=== PATIENT | female | born 1965 | race Caucasian/White ===

== ENCOUNTER 2021-10-19 13:30 | Outpatient (RCR) | payer BC, SELFPAY ==
--- OUTSIDE RECORDS SUMMARY | 2021-09-14 10:09 | XMS_ITS | Continuity of Care Document ---
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 noted July 23, Yes Active in previous 2021 records received Sulfa drugs Allergy Moderate swelling July 23, Yes Active 2021 Yip Allergy Moderate lip swelling July 23, Yes Active 2021 Social History Smoking Status Status Start Date End Date Date of Observat ion Ex-smoker (finding) October 10, 021 1:48pm Observation Status Observation Response Date of Response Tobacco abuse November 30, 2014 3:22pm Alcohol use November 30, 2014 3:24pm Additional Data Assigned Sex Female Problems Active Problems Medical Problem Onset Date Status Hyperlipidemia Active Elbow pain, chronic Active Small cell lung cancer May 06, 2017 Active History of tobacco use Resolved Hypertension Active 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 D o not take with other sedating medications. Mg TAB 2021 8:28am Diazepam Active 5 MG PO Once 22 June Take 30 mi nutes prior to MRI. Do not take with other , sedating meds. 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 2021 8:32am Diclofenac Active 1 ROSE TOP 4 Times Per March Apply to affected area of back pain. Do not use if taking Sodium Day as , ibuprofen or other NSAID. (Topical) needed 2019 1:24pm Epinephrine Active 0.3 MG IM Once 22 December (Epipen , 2-Rusty) 0.3 2020 Mg INJ 1:11pm Escitalopram Active 5 MG PO Daily June Oxalate 2021 6:46pm Ibuprofen Active 400-6 MG PO Q6h Prn 30 (Advil) 200 00 Mg CAP Lidocaine-Pr Active 1 ROSE TOP As Needed 20 November ilocaine 2019 1:39pm Magnesium Active 400 MG PO Daily 100 Oxide Metoprolol Active 25 MG PO Daily 20 August Succinate , (Metoprolol 2021 Succinate 3:32pm Er) 25 Mg TABCR Acetaminophe Disconti 1 - 2 TAB PO Q4h Prn October n/Codeine nued , ry Phosphate 2004 10, (Acetaminoph 10:21pm 2008 en/Codeine#3 8:17pm ) 30 Mg/300 Mg TAB Acetaminophe Disconti 1-2 TAB PO Three Times Oc alexandra n/Hydrocodon nued A Day as er , r e Bitart needed 2013 12, (Hydrocodone 3:06pm 2013 -Acetaminoph 1:56pm en) 5 Mg/325 Mg TAB Albuterol Disconti 2-4 PUFF INH Every 4 1 May (Ventolin nued Hours as 13, , Hfa) 90 Mcg needed 2017 2018 DOSE 8:59am 3:08pm Albuterol Disconti 2-4 PUFF INH Every 4 1 May (Ventolin nued Hours as y 12th, 13, Hfa) 90 Mcg needed 2017 2017 DOSE 2:45pm 8:59am Albuterol Disconti 2-4 PUFF INH Every 4 1 Decembe (Ventolin nued Hours as r 22, ry Hfa) 90 Mcg needed 2017 02, DOSE 4:16pm 2017 2:45pm Albuterol Disconti 1 - 2 PUFF PO Qid Prn Octoberua (Ventolin nued 23, ry Hfa) 90 Mcg 2004 8th, DOSE 10:21pm 2008 8:17pm Albuterol Disconti 2 PUFF INH Every 4 1 Maruar Sulfate nued Hours as y (Proair Hfa) needed , 90 Mcg/Puff 2021 INH 11:26a m Albuterol Disconti 2.5 MG NEB Every 4 30 Decembe May Sulfate nued Hours as r 22, , (Albuterol needed 2016 2017 Neb) 2.5 4:55pm 9:15am Mg/3 Ml NEB Albuterol/Ip Disconti 1 NEB NEB Four Times 120 Decembe Mar ch ratropium nued Daily r , , (Duoneb) 3 2016 2017 Mg/0.5 Mg 4:30pm 9:15am NEB Albuterol/Ip Disconti 1 NEB NEB Once 1 Decembe Decemb ratropium nued r 22, er (Duoneb) 3 2016, Mg/0.5 Mg 4:12pm 2016 NEB 4:19pm Amitriptylin Disconti 25 MG PO Qhs 20 Februar Octobe e Hcl nued y , r 2009 02, 10:31pm 2008 6:28pm Amlodipine Disconti 5 MG PO Daily July Besylate nued , vijaya 2013 11, 12:41pm 2013 2:15pm Amlodipine Disconti 10 MG PO Daily August Besylate nued , vijaya 2013 11, 2:41pm 2013 2:15pm Amlodipine Disconti 5 MG PO Daily June Besylate nued , 2013 10:12am 12:41p m Amlodipine Disconti 5 MG PO Daily March Besylate nued , 2013 9:19am 10:12a m Amlodipine Disconti 5 MG PO Daily September Besylate nued , y 2012, 10:32am 2013 9:19am Amlodipine Disconti 5 MG PO Daily June Besylate nued 2012 9:12am 10:32a m Amlodipine Disconti 5 MG PO Daily June Besylate nued 2012 9:12am Amoxicillin Disconti 1 TABLET PO Twice Daily September & Pot nued For 10 Days , Clavulanate 2014 2014 (Augmentin) 10:28am 1:05pm 875 Mg/125 Mg TAB Amoxicillin/ Disconti 1 TAB PO Twice Daily h Clavulanate nued For 10 Days 2017 (Amoxicillin 9:15am & Pot Clavulanate) 875 Mg/125 Mg TAB Aspirin Disconti 81 MG PO Daily Juneed 2017 3:17pm Atorvastatin Disconti 80 MG PO Bedtime June Calcium nued , 2021 10:43am 3:34pm Atorvastatin Disconti 80 MG PO Bedtime March Calcium nued , 2021 10:00am 10:43a m Atorvastatin Disconti 80 MG PO Bedtime Maruar Calcium nued r , y 2020, 11:13am 2021 10:00a m Atorvastatin Disconti 80 MG PO Bedtime December Decemb Calcium nued , er 2019, 1:11pm 2020 11:13a m Atorvastatin Disconti 40 MG PO Bedtime December Octobe Calcium nued , r 2019, 10:36am 2019 1:11pm Atorvastatin Disconti 40 MG PO Bedtime July Octobe Calcium nued , r 2019 10:48am 10:36a m Atorvastatin Disconti 40 MG PO Bedtime June Calcium nued , 2018 1:43pm 10:48a m Atorvastatin Disconti 40 MG PO Bedtime July Calcium nued , 2017 10:04am 1:43pm Atorvastatin Disconti 40 MG PO Bedtime 90 July Calcium nued y 2017 2:45pm 10:04a m Atorvastatin Disconti 40 MG PO Bedtime 90 Novem Februa Calcium nued r , ry 2017 02, 12:35pm 2017 2:45pm Atorvastatin Disconti 40 MG PO Bedtime 90 Novem Novemb Calcium nued r 15th, er 2015 10, 2:34pm 2016 12:35p m Atorvastatin Disconti 40 MG PO Bedtime December Pt needs apt Calcium nued 4th, er for physical 2015, prior to 4:26pm 2015 further 2:34pm refills Atorvastatin Disconti 40 MG PO Bedtime 20 November Octobe Calcium nued 30th, r , 2015 2015 3:52pm 4:26pm Atorvastatin Disconti 80 MG PO Bedtime October Pt needs to be seen for physical with fasting lab work Calcium nued , , prior to nex t refill. 2015 2015 4:44pm 3:52pm Atorvastatin Disconti 80 MG PO Bedtime March Calcium nued , , 2015 2015 2:41pm 4:44pm Atorvastatin Disconti 10 MG PO Bedtime March Pt needs to be seen prior to next refill request. Pt should Calcium nued , y come in fast ing to have lab work updated as well 2015, 2:58pm 2015 2:41pm Atorvastatin Disconti 10 MG PO Bedtime 30 Decembmaruar Calcium nued r 15th, y 2014, 4:26pm 2015 2:58pm Atorvastatin Disconti 10 MG PO Bedtime 30 Novem Decemb Please schedule a follow up appointment for further Calcium nued r 13th, er refills. 2014, 10:01am 2014 4:26pm Atorvastatin Disconti 10 MG PO Bedtime October Calcium nued 18th, er 2014, 9:10am 2014 10:01a m Azithromycin Disconti 0 PO Daily 6 Novembe Decemb T BHASKAR 2 TABLETS TOGETHER TODAY, THEN 1 TABLET ONCE DAILY FOR 4 MORE (Zithromax) nued r 2nd, er DAYS 250 Mg TAB 2016, 4:54pm 2016 3:48pm Azithromycin Disconti 250-5 MG PO Daily September 500 mg x 1 day nued , , then 250 mg 2014 2014 daily x 4 days 2:07pm 1:28pm Azithromycin Disconti 250-5 MG PO Daily June 500 mg x 1 day nued , then 250 mg 2013 2014 daily x 4 days 9:11am 12:41p m Azithromycin Disconti 1 PACK PO As Dir On October a TAKE 2 TABLETS TOGETHER ON DAY 1, THEN 1 TABLET BY MOUTH ONCE DAILY FOR 4 MORE (Zithromax) nued Pack , 250 Mg TAB 2005 8th, 10:21pm 2008 8:17pm Benzonatate Disconti 100 MG PO Three Times May b (Tessalon nued A Day as , er Perles) 100 needed 2017, Mg CAP 10:31am 2017 3:12pm Cannabinoids Disconti 15 MG PO Daily Marchuar (Full nued , y Spectrum 2022 02, Soft Gels) 1:09pm 2021 15 Mg CAP 3:00pm Cephalexin Disconti 500 MG PO Three Times be (Keflex) 500 nued A Day er r Mg CAP , 2013 5:40pm 1:56pm Chlorthalido Disconti 25 MG PO Daily September ne nued , 2014 1:42pm 1:44pm Chlorthalido Disconti 12.5 MG PO Daily September ne nued , 2014 10:28am 1:42pm Ciprofloxaci Disconti 1 TABLET PO Twice Daily December ecemb n Hcl nued For 7 Days , er 2014, 1:40pm 2014 3:45pm Cyclobenzapr Disconti 5-10 MG PO Bedtime as Dec obe ine Hcl nued needed er , r 2013 12, 3:06pm 2013 1:56pm Diphtheria/P Disconti 0.5 ML IM Once September ertussis/Tet nued , , anus Vacc 2014 2014 (Boostrix) 1 1:42pm 2:03pm Ea SUSP Doxycycline Disconti 100 MG PO Twice Daily Apr rom Hyclate nued For 10 Days r 2016, 4:32pm 2017 2:09pm Dronabinol Disconti 5 MG OR Twice A Day 60 March nued , , 2021 2021 3:01pm 10:31a m Epinephrine Disconti 0.3 MG IM Once September (Epipen nued , r 2-Rusty) 0.3 2014, Mg INJ 1:43pm 2019 1:11pm Escitalopram Disconti 10 MG PO Daily 30 June Of fice visit Oxalate nued y , , needed bef ore (Lexapro) 2021 additio nal Mg TAB 10:46am 6:46pm refills Escitalopram Disconti 2.5 MG PO Daily Oxalate nued ry (Lexapro) 01 05, Mg TAB 2021 10:46a m Escitalopram Disconti 10 MG PO Daily October Oxalate nued , vijaya 2020, 7:17am 2020 3:06pm Escitalopram Disconti 10 MG PO Daily September Oxalate nued , 2020 11:40am 7:17am Escitalopram Disconti 10 MG PO Daily August Oxalate nued , 2020 10:07am 11:40a m Escitalopram Disconti 10 MG PO Daily July Oxalate nued , , 2020 2020 9:11am 10:07a m Escitalopram Disconti 10 MG PO Daily May Oxalate nued , 2020 11:04am 9:11am Escitalopram Disconti 10 MG PO Daily May Oxalate nued r , 2019 4:55pm 11:04a m Escitalopram Disconti 10 MG PO Daily Decemberb Oxalate nued , er 2019, 1:11pm 2019 4:55pm Fluconazole Disconti 150 MG PO Once September Use after (Diflucan) nued , , finishing oral 150 Mg TAB 2014 2014 antibioti c. 2:07pm 1:28pm Fluticasone Disconti 2 SPRAY EACH Daily ua Propionate nued NOSTR r 15, ry (Fluticasone 2015, Propionate 2:34pm 2017 (Nasal)) 50 1:32pm Mcg/1 [place] INH Fluticasone Disconti 2 SPRAY EACH Daily Septemberb Propionate nued NOSTR 17th, er (Fluticasone 2014, Propionate 10:28am 2015 (Nasal)) 50 2:34pm Mcg/1 [place] INH Fluticasone Disconti 1 PUFF INH Twice A Day 1 Mar ch Propionate nued y , , Hfa (Flovent 2018 2018 Hfa) 110 2:45pm 9:15am Mcg/Act AER Fluticasone Disconti 2 SPRAY EACH Daily 1 June Rose ointment Propionate nued NOSTR y , , needed before (Nasal) 2017 2018 further 1:32pm 12:59p refills m Furosemide Disconti 20 MG PO Every 90 Decembmay nued Morning r 11, , 2016 2017 4:19pm 11:34a m Furosemide Disconti 20 MG PO Every 90 Novembe Dece nued Morning r 15th, er 2015 11, 2:34pm 2016 4:19pm Furosemide Disconti 20 MG PO Every 30 Novem Novemb Pt needs apt nued Morning r 10th, er for physic al 2015, prior to 9:43am 2015 further 2:34pm refills Furosemide Disconti 20 MG PO Every December Pt needs apt nued Morning 4th, er for physical 2015 12, prior to 4:26pm 2015 further 9:43am refills Furosemide Disconti 20 MG PO Every 20 November Oct nu Morning , r , 2015 2015 3:52pm 4:26pm Furosemide Disconti 20 MG PO Every October nued Morning , , 2015 2015 3:45pm 3:52pm Furosemide Disconti 20 MG PO Every May nued Morning , 2015 10:25am 3:45pm Furosemide Disconti 20 MG PO Every March nued Morning , 2015 2:41pm 10:25a m Furosemide Disconti 20 MG PO Every March Pt needs to be seen prior to next refill request. Pt should nued Morning , come in fast ing as well to lab work updated. 2015, 2:58pm 2015 2:41pm Furosemide Disconti 20 MG PO Every 30 Decembe Maruar nued Morning r 15th, y 2014, 4:26pm 2015 2:58pm Guaifenesin/ Disconti 5-10 ML PO Every 6 May Codeine nued Hours as , Phosphate needed 2017 2017 (Guaifenesin 8:59am 11:07a -Codeine) m 100 Mg/10 Mg/5 Ml SOLN Guaifenesin/ Disconti 5-10 ML PO Every 6 120 May Codeine nued Hours as , Phosphate needed 2017 (Guaifenesin 8:59am -Codeine) 100 Mg/10 Mg/5 Ml SOLN Guaifenesin/ Disconti 5-10 ML PO Every 6 120 Decembe Februa Codeine nued Hours r , ry Phosphate 2017 , (Guaifenesin 4:35pm 2017 -Codeine) 2:09pm 100 Mg/10 Mg/5 Ml SOLN Hydrochlorot Disconti 50 MG PO Daily 30 Decembe September hiazide nued r , 2013 12:46pm 9:55am Hydrochlorot Disconti 50 MG PO Daily 90 Decembseptember hiazide nued r , 2013 5:34pm 9:55am Hydrochlorot Disconti 50 MG PO Daily 30 Novembe Decemb hiazide nued r 11, er 2013 9, 7:42am 2013 12:46p m Hydrochlorot Disconti 50 MG PO Daily Decemberb hiazide nued 10th, er 2014 01, 2:28pm 2013 7:42am Hydrochlorot Disconti 50 MG PO Daily 20 January Octobe hiazide nued 10th, r 2013 12, 2:30pm 2013 2:30pm Ibuprofen Disconti 200 MG PO As Needed August (Advil) 200 nued as needed 4th, Mg CAP 2018 3:08pm Ibuprofen Disconti 200-6 MG PO Q6h Prn 21 July (Advil) 200 nued 00 29, Mg CAP 2018 12:59p m Ibuprofen Disconti 800 MG PO Three Times 30 Novembe Novem b nued A Day as r 15, er needed 2015 04, 2:35pm 2016 4:29pm Ibuprofen Disconti 800 MG PO Three Times 30 Novemb nued A Day as er needed 2015 2:35pm Ibuprofen Disconti 800 MG PO Three Times 30 Decembe Novem b 3 times a day nued A Day r 15, er with meals x 2014, 10 days 4:28pm 2015 2:11pm Ibuprofen Disconti 800 MG PO Three Times 30 Septemb Decem b 3 times a day nued A Day er 9th, er with meals x 2014 15, 10 days 3:13pm 2014 4:28pm Ibuprofen Disconti As Needed June nued 2012 8:55am Ibuprofen Disconti October nued 2004 7:26pm Indomethacin Disconti 50 MG PO Three Times 30 Februar Oc alexandra (Indocin) 50 nued A Day y 8th, r Mg CAP 2009 02, 10:31pm 2008 6:28pm Influenza Disconti 0.5 ML IM Once 1 Novem Novemb Virus nued r 2nd, er Vaccine 2016 04, Split 5:00pm 2016 (Fluzone 5:06pm Quadrivalent 2016 0.5 Ml) 1 Inj INJ Influenza Disconti 0.5 ML IM Once 1 Novem Novemb Virus nued r 15, er Vaccine 2015, Split 2:52pm 2015 (Fluzone 3:01pm Quadrivalent (3 Yrs And Older)2015- 7) 1 Inj INJ Influenza Disconti 0.5 ML IM Once 1 Decembe Decemb Virus nued r 15, er Vaccine 2014, Split 3:48pm 2014 (Fluzone 4:07pm Quadrivalent (3 Yrs And Older)2014- 6) 1 Inj INJ Ketorolac Disconti 30 MG IM Once 1 Novem Tromethamine nued er 9, vijaya 2013 9, 3:15pm 2013 3:18pm Lidocaine-Pr Disconti 1 ROSE TOP As Needed March st ilocaine nued , , 2019 2019 4:47pm 1:39pm Lidocaine-Pr Disconti 1 ROSE TOP As Needed Julyua ilocaine nued , ry 2017, 3:17pm 2018 2:04pm Lisinopril Disconti 20 MG PO Daily 30 Decemb nued r 11, er 2013 9, 7:43am 2013 3:13pm Lisinopril Disconti 20 MG PO Daily Decemberb nued 10th, er 2013 11, 2:29pm 2013 7:43am Lorazepam Disconti 0.5-1 MG PO Every 4 March Decemb [place] N nued Hours as 7th, er Nausea/vomi tin needed for 2019 16, g Nausea/Vomi 3:32pm 2019 ting 12:06p m Lorazepam Disconti 0.5 MG PO Twice A Day May Novemb (Ativan) 0.5 nued 6th, er Mg TAB 2017, 10:31am 2017 3:12pm Lorazepam Disconti 1 MG PO Tid Prn 14 uar Octobe nued y 8th, r 2009 02, 10:31pm 2008 6:28pm Losartan Disconti 50 MG PO Daily Decobe Potassium nued er r 2013 4:47pm 2:30pm Losartan Disconti 50 MG PO Daily Octoberem Potassium nued , 2013, 7:50am 2013 4:47pm Losartan Disconti 50 MG PO Daily September Potassium nued , 2013 9:17am 7:50am Magic Disconti 5 ML PO Four Times March SWIS H, Hold in mouth, AND then SPIT. For pain associated Mouthwash nued Daily as , with mo uth sores. (Lidocaine/B needed 2019 CO MPOUND IF FIRST PRODUCT NOT COVERED enadryl/Maal 2:58pm 10:31a ox) m (First-Mouth wash Blm) Blm KULDIP Magnesium Disconti 1 TAB PO Twice A Day May Chloride-Gerson nued , cium Car 2019 2019 (Slow 12:46pm 1:40pm Magnesium Chloride/ 70-117 Mg) 1 Tab TAB Magnesium Disconti 400 MG PO Twice A Day 100 Decembe Janua r Oxide nued r , y 2019, 2:26pm 2020 12:33p m Magnesium Disconti 400 MG PO Daily 100 Decemb Oxide nued er 2019 2:26pm Magnesium Disconti 500 MG PO Twice A Day 120 60 Decob e Hasn't been Oxide (Mg nued er r taken Supplement , (Magnesium 2019 2019 Oxide) 500 1:36pm 1:44pm Mg TAB Magnesium Disconti 500 MG PO Twice A Day 120 Octoberem Oxide (Mg nued vijaya Supplement 2019, (Magnesium 1:29pm 2019 Oxide) 500 1:36pm Mg TAB Metoprolol Disconti 25 MG PO Daily June Office appt Succinate nued , , needed bef ore (Metoprolol 2021 2021 further Succinate 10:43am 3:32pm refills . Er) 25 Mg TABCR Metoprolol Disconti 25 MG PO Daily May Office appt Succinate nued , needed bef ore (Metoprolol 2021 2021 further Succinate 9:07am 10:43a refills. Er) 25 Mg m TABCR Metoprolol Disconti 25 MG PO Daily March Offi ce appt Succinate nued , needed bef ore (Metoprolol 2021 2021 further Succinate 10:00am 9:07am refills . Er) 25 Mg TABCR Metoprolol Disconti 25 MG PO Daily March Off ice appt Succinate nued , needed bef ore (Metoprolol 2021, further Succinate 10:23am 2021 refills. Er) 25 Mg 10:00a TABCR m Metoprolol Disconti 25 MG PO Daily December Succinate nued , y (Metoprolol 2019, Succinate 1:11pm 2021 Er) 25 Mg 10:23a TABCR m Metoprolol Disconti 25 MG PO Daily December Succinate nued , r (Metoprolol 2019, Succinate 10:36am 2019 Er) 25 Mg 1:11pm TABCR Metoprolol Disconti 25 MG PO Daily Decobe Succinate nued er r 9, (Metoprolol 2019 Succinate 2019 10:36a Er) 25 Mg 3:54pm m TABCR Metoprolol Disconti 25 MG PO Daily July Succinate nued , vijaya (Metoprolol 2020 01, Succinate 10:48am 2019 Er) 25 Mg 3:54pm TABCR Metoprolol Disconti 25 MG PO Daily June Succinate nued , , (Metoprolol 2018 2019 Succinate 1:43pm 10:48a Er) 25 Mg m TABCR Metoprolol Disconti 25 MG PO Daily June Succinate nued , , (Metoprolol 2018 2018 Succinate 9:57am 1:43pm Er) 25 Mg TABCR Metoprolol Disconti 25 MG PO Daily June Succinate nued r , , (Metoprolol 2017 2018 Succinate 8:57am 9:57am Er) 25 Mg TABCR Metoprolol Disconti 25 MG PO Daily 90 Decemb Succinate nued er er (Metoprolol , , Succinate 2017 2017 Er) 25 Mg 1:10pm 8:57am TABCR Metoprolol Disconti 25 MG PO Daily 90 Mayem Succinate nued , vijaya (Metoprolol 2017, Succinate 11:34am 2017 Er) 25 Mg 1:10pm TABCR Metoprolol Disconti 25 MG PO Twice A Day 180 Decee Travis h Tartrate nued r 2016 4:19pm 11:34a m Metoprolol Disconti 25 MG PO Twice A Day 180 Novembe Dece mb Tartrate nued r 15, er 2016 01, 2:34pm 2016 4:19pm Metoprolol Disconti 25 MG PO Twice A Day 60 Novembe Fabienne mb Pt needs apt Tartrate nued r 10th, er prior to 2015, further 9:43am 2016 refills 2:34pm Metoprolol Disconti 25 MG PO Twice A Day 60 December Fabienne mb Pt needs apt Tartrate nued 4th, er prior to 2015 12, further 4:24pm 2016 refills 9:43am Metoprolol Disconti 25 MG PO Twice A Day 60 October e Tartrate nued 30, r , 2015 2015 3:52pm 4:24pm Metoprolol Disconti 25 MG PO Twice A Day 60 Octoberus t Tartrate nued , , 2015 2015 3:45pm 3:52pm Metoprolol Disconti 25 MG PO Twice A Day [address] Tartrate nued , , 2015 2015 8:18am 3:45pm Metoprolol Disconti 25 MG PO Twice A Day 60 Novem ar Tartrate nued r , y 2014, 9:58am 2015 8:18am Metoprolol Disconti 25 MG PO Twice A Day 60 October Novem b Tartrate nued , er 2014, 1:44pm 2014 9:58am Metoprolol Disconti 25 MG PO Twice A Day 60 September Tartrate nued 2014 1:42pm 1:44pm Metoprolol Disconti 25 MG PO Twice A Day 60 August Tartrate nued 2014 10:56am 1:42pm Metoprolol Disconti 25 MG PO Twice A Day 60 August Tartrate nued 2014 1:45pm 10:56a m Metoprolol Disconti 25 MG PO Twice A Day 60 August Tartrate nued r 2013 12:46pm 1:45pm Metoprolol Disconti 25 MG PO Twice A Day 90 August Tartrate nued r 2013 5:34pm 1:45pm Metoprolol Disconti 25 MG PO Twice A Day 60 Novem Dece mb Tartrate nued r , er 2013 11, 7:45am 2013 12:46p m Metoprolol Disconti 25 MG PO Twice A Day 60 December mb Tartrate nued , er 2014 01, 2:30pm 2013 7:45am Metoprolol Disconti 25 MG PO Twice A Day 60 December be Tartrate nued , r 2013 12, 2:26pm 2013 2:30pm Metoprolol Disconti 25 MG PO Twice A Day 30 Octo be Tartrate nued er r 2013 8:09am 2:26pm Metoprolol Disconti 25 MG PO Twice A Day 30 Nov em Tartrate nued er vijaya 2013 6:50pm 8:09am Metronidazol Disconti 1 ROSE PV Bedtime SeptemberOctober 22 e Vaginal nued , APPLICATOR FUL (Metrogel 2014 2014 PV AT BEDT TEX Vaginal) 2:07pm 1:28pm 0.75 % GEL Mometasone Disconti 1 PUFF INH Twice A Day Furoate-Form nued er oterol , (Dulera) 100 2018 Mcg/5 Mcg 3:12pm INH Omeprazole Disconti 20 MG PO Daily December Novemb nued , er 2017, 4:32pm 2017 3:12pm Omeprazole Disconti 20 MG PO Daily Decobe nued r 2017 4:32pm Oxycodone/Ac Disconti 1-2 TAB PO Every 4 Octobe etaminophen nued Hours as er r (Percocet) 5 needed 10th, 10th, Mg/325 Mg 2013 2013 TAB 5:40pm 1:56pm Phenazopyrid Disconti 200 MG PO Three Times Decemberb ine Hcl nued A Day as , er (Pyridium) needed 2014, 200 Mg TAB 1:40pm 2014 3:45pm Potassium Disconti 20 MEQ PO Daily May Chloride nued , , 2019 2019 2:24pm 10:31a m Prednisone Disconti 40 MG PO Daily May nued r , 2016 4:16pm 9:15am Prednisone Disconti 40 MG PO Daily Ud Octobe 60 MG PO DAILY FOR 3 DAYS, THEN nued er r 40 MG PO DAILY FOR 3 DAYS, THEN 10th, 10th, 20 MG PO DAILY FOR 3 DAYS. 2013 2013 5:40pm 1:56pm Prednisone Disconti 20 MG PO Daily Octoberua nued , ry 2004 8th, 10:21pm 2008 8:17pm Prochlorpera Disconti 10 MG PO Every 4-6 March PRN zine Maleate nued Hours as , Naus ea/vomitin needed for 2019 2020 g Nausea/Vomi 3:32pm 1:03pm ting Prochlorpera Disconti 10 MG PO Every 4-6 May PRN zine Maleate nued Hours as , er Naus ea/vomitin needed for 2017, g Nausea/Vomi 12:40pm 2017 ting 3:12pm Rosuvastatin Disconti 10 MG PO Bedtime October Calcium nued , , (Crestor) 2014 Mg TAB 1:44pm 9:10am Tamsulosin Disconti 0.4 MG PO Daily May Hcl (Flomax) nued , 0.4 Mg CAP 2017 2017 11:20pm 11:07a m Verapamil Disconti 80 MG PO Three Times 30 Octob e Hcl (Calan) nued A Day er 9, r 80 Mg TAB 2013 12, 3:06pm 2013 2:26pm Immunizations Immunization Event Date Not Given Dose Dock Associate Lot Vac cine Reason Number Number Informatio n Statement (VIS) Deta il COVID-19 Pfizer June 17, 1 PFIZER-BIONTECH [id number] 2020 COVID-19 Pfizer July 08, 2 PFIZER-BIONTECH [id number] 2020 Influenza February 212002 Influenza February 2 Sanofi 2014 Influenza January 24 Sanofi 2015 Influenza January 25 Sanofi 2016 Tetanus/Diptheri October 14, 1 a 2014 Tdap October 14, 1 SANOFI [id number] (adolescent/adul 2015 t) Medical Equipment Device Date Implanted Device Details PowerPort [employer] Implantable March 26, 2019 JONY: [id number] Port Issuing Agency: GS1 Device Id: [id number] Expiration Date: 03-27-29 Lot Number: [id number] Relevant Diagnostic Tests and/or Laboratory Data Laboratory Results Test Date/Time Result Interpretation Reference Result Comment Performing Range Site White Blood September 07, 6.11 5.00-10.00 [facility] Count [address] [facility] 1:55pm [facility] [address] Red Blood September 07, 3.37 3.90-5.03 [facility] Count [address] [facility] 1:55pm [place] [address] Hemoglobin September 07, 13.5 12.0-15.5 [facility] [address] [facility] 1:55pm [place] [address] Hematocrit September 07, 39.8 34.9-44.5 [facility] [address] [facility] 1:55pm [place] [address] Mean September 07, 118 82-98 [facility] Corpuscular 2021 [address] [facility] Volume 1:55pm [place] [address] Mean September 07, 40 27-34 [facility] Corpuscular 2021 [address] [facility] Hemoglobin 1:55pm [place] [address] Mean September 07, 34 32-36 [facility] Corpuscular 2021 [address] [facility] Hemoglobin 1:55pm [place] [address] Concent Platelet Count September 07, 159 150-450 [facility] [address] [facility] 1:55pm [place] [address] RDW September 07, 13.0 11.5-15.3 [facility] Coefficient of [address] [facility] Variation 1:55pm [place] [address] Neutrophils September 07, 81.6 50.0-70.0 [facility] (%) (Auto) 2021 [address] [facility] 1:55pm [place] [address] Lymphocytes September 07, 8.7 25.0-45.0 [facility] (%) (Auto) 2021 [address] [facility] 1:55pm [place] [address] Monocytes (%) September 07, 8.0 0.00-11.0 [place] [facility] (Auto) [address] [facility] 1:55pm [place] [address] Eosinophils September 07, 1.0 0.0-7.0 [facility] (%) (Auto) 2021 1999 [facility] 1:55pm [place] [address] Basophils (%) September 07, 0.5 0.0-3.0 [facility] Lab (Auto) [address] [facility] 1:55pm [place] [address] Immature September 07, 0.2 [facility] Granulocyte % 2021 1999 [facility] (Auto) 1:55pm [place] [address] Neutrophils # September 07, 4.99 1.70-7.00 [facility] (Auto) [address] [facility] 1:55pm [place] [address] Lymphocytes # September 07, 0.53 0.90-2.90 [facility] Lab (Auto) [address] [facility] 1:55pm [place] [address] Monocytes # September 07, 0.49 0.30-0.90 [facility] (Auto) [address] [facility] 1:55pm [place] [address] Eosinophils # September 07, 0.06 0.00-0.50 [facility] Lab (Auto) [address] [facility] 1:55pm [place] [address] Basophils # September 07, 0.03 0.00-0.20 [facility] (Auto) [address] [facility] 1:55pm [place] [address] Immature September 07, 0.01 [facility] Granulocyte # 2021 [address] [facility] (Auto) 1:55pm [facility] [address] Random Glucose September 07, 138 60-115 [facility] [address] [facility] 1:55pm [facility] [address] Blood Urea September 07, 15 7-30 [facility] Nitrogen [address] [facility] 1:55pm [place] [address] Creatinine September 07, 0.7 0.5-1.5 [facility] [address] [facility] 1:55pm [place] [address] Estimated September 07, Patient [facility] Creatinine 2021 height/weight [address] [facility] Clearance 1:55pm [place] [address] available Sodium Level September 07, 138 135-149 [facility] [address] [facility] 1:55pm [facility] [address] Potassium September 07, 3.6 3.6-5.1 [facility] Level [address] [facility] 1:55pm [facility] [address] Chloride Level September 07, 100 96-114 [facility] [address] [facility] 1:55pm [facility] [address] Carbon Dioxide September 07, 28 20-32 [facility] Level [address] [facility] 1:55pm [facility] [address] Calcium Level September 07, 8.5 8.4-10.6 [facility] [address] [facility] 1:55pm [facility] [address] Magnesium September 07, 1.7 1.5-2.6 [facility] Level [address] [facility] 1:55pm [facility] [address] Total Protein September 07, 7.5 6.0-8.[address] [facility] 2021 Eltrombopag, a [address] [facility] 1:55pm bone [place] [address] stimulant used to treat thrombocytopenia and aplastic anemia, interferes with this measurement of total protein. A 5% bias has been observed. Albumin September 07, 4.4 3.3-5.0 [facility] [address] [facility] 1:55pm [place] [address] Total September 07, 0.9 0.1-1.5 [facility] Bilirubin [address] [facility] 1:55pm [place] [address] Aspartate September 07, 74 12-35 [facility] Amino Transf 2021 1999 [address] [facility] (AST/SGOT) 1:55pm [facility] [address] Alanine September 07 35 4-35 [facility] Aminotransfera [address] [facility] se (ALT/SGPT) 1:55pm [facility] [place] [address] Alkaline September 07 40-150 [facility] Phosphatase 2021 [address] [facility] 1:55pm [facility] [address] Thyroid September 07, 3.270 0.270-4.20 Patients taking No [facility] Stimulating 2021 0 a high dose [address] [facility] Hormone (TSH) 1:55pm (>5mg/day) of [facility] [address] Biotin supplement (vitamin B7) will demonstrate a >10% negative bias for TSH testing. Cortisol AM September 07.8 INTERPRETIVE [employer] Sample 2021 INFORMATION: [address] 1:55pm Cortisol, Serum6 [facility] [address] a.m. - 10 a.m. reference interval: 6.0 - 18.4 ug/dL4 p.m. - 8 p.m. reference interval: 2.7 - 10.5 ug/dL8 hrs post 1 mg dexamethasone given at midnight: 0.0 - 5.0 ug/dLNormal peak serum cortisol is greater than 18.0 ug/dL at 30 or60 minutes after 250 micrograms of cosyntropin I.V.Performed By: [facility] [place] [id number] Director: Dora Dougherty MD Advance Directives Advance Directive Response Recorded Date/Time Does Pt have Health Care N - Given today April 20, 016 5:14pm Directive? Has patient completed a No October 10, 2020 1:48pm Health Care Directive? Insurance Providers Guarantor Jackie Quiroga Address [facility] [address] Contact Info. Home Phone: Payer Policy Id Coverage Id Subscriber's Subscriber Id Effective E xpiration Name Date Date Medicaid [id number] Jackie Quiro[employer] [id number] Encounters Encounter Location(s) Arrival/Admit Date Discharge/Depart Date Provider(s) Registered [place] September 07, 2021 [facility] 1:14pm Plan of Treatment Future Tests Future scheduled test information is unavailable Pending Tests Pending diagnostic test information is unavailable Future Visits Future appointment information is unavailable Referrals to Other Providers Reason for Referral Start Provider Provider Contact Provider Address Referral Date Information Pranay Almonte Work Phone: [facility] [address] [facility] [phone] [place], Work Phone: [facility] Ashok DELUNA [address] [facility] [phone] Future Procedures Procedure Name Scheduled Date GARCIA Bilat Mammo Scrn Future Medications Future medication information is unavailable Patient Instructions Blood & Blood Components (DC) Granisetron (By injection) Fosaprepitant (By injection) Blood Transfusion Reactions (GEN) Thrombocytopenia (DC) Blood Transfusion (GEN)
--- NOTE | 2021-09-28 12:01 | ONC.NURNOTE ---
Called pt at 1200, pt did not show up for 1100 appt. Message left with pt to call back to come in yet today or reschedule.
[2021-09-28 13:00] VITALS: BP 118/80; PULSE 79; RESP 14; TEMP 35.5; O2SAT 92
[2021-09-28 13:03] LABS: Albumin* 4.2 g/dL (3.3-5.0); Chloride* 103 mmol/L (96-114)
[2021-09-28 13:04] LABS: Potassium* 3.4 mmol/L (3.6-5.1); Sodium* 138 mmol/L (135-149)
[2021-09-28 13:06] LABS: Alanine Aminotransferase* 47 U/L (4-35); Alkaline Phosphatase* 98 U/L (40-150); Aspartate Amino Transferase* 80 U/L (12-35); Bilirubin Total* 0.8 mg/dL (0.1-1.5); Blood Urea Nitrogen* 11 mg/dL (7-30); Carbon Dioxide* 25 mmol/L (20-32); Creatinine* 0.7 mg/dL (0.5-1.5); Est. Creatinine Clearance* 70.14; Estimated Glomerular Filt Rate 103.35; Total Protein* 7.3 g/dL (6.0-8.3)
[2021-09-28 13:07] LABS: Calcium* 8.5 mg/dL (8.4-10.6); Glucose* 134 mg/dL (60-115); Magnesium* 1.4 mg/dL (1.5-2.6)
[2021-09-28] MEDS: ALTEPLASE 2 MG INJ IVF (13:12)
[2021-09-28 13:42] LABS: Basophils Absolute Auto 0.05 K/uL (0.00-0.30); Eosinophils Absolute Auto 0.09 K/uL (0.00-0.50); Eosinophils Percent Auto 1.9 % (0.0-7.0); Hematocrit 38.3 % (33.0-51.0); Hemoglobin* 12.8 gm/dL (12.0-16.0); Immature Granulocytes Abs Auto 0.01 K/uL (0.00-0.30); Lymphocytes Percent Auto 12.6 % (20-44); Mean Corpuscular HGB Conc 33 gm/dL (32-36); Mean Corpuscular Hemoglobin 40 pg (26-34); Mean Corpuscular Volume 119 fL (80-100); Monocytes Percent Auto 10.7 % (0.0-11.0); Neutrophils Percent Auto 73.6 % (42.0-72.0); Platelet Count* 198 K/uL (140-440); RDW Coefficient of Variation % 13.2 % (11.5-15.5); Red Blood Count 3.22 m/uL (4.00-5.20); White Blood Count* 4.85 K/uL (4.50-11.00)
[2021-09-28 13:48] LABS: Slide Review Reflex No
[2021-09-28] MEDS: SODIUM CHLORIDE 0.9 % (FLUSH) 10 ML SYRINGE IVF (14:19)
[2021-09-28] MEDS: HEPARIN 500 UNIT/5 ML SYRINGE IVF (14:19)
[2021-09-28] MEDS: 0.9 % SODIUM CHLORIDE 250 ml IV (14:19)
--- NOTE | 2021-09-28 14:33 | ONC.NURNOTE ---
Patient arrived late, unable to get port to give a blood return until cat flow in for 3/4 hr. pharmacy was called twice for cat flow. treatment started after labs back. reviewed mag of 1.4 to Roxy Bailon APRN . Pt to receive 2gm mag over 1 hr before leaving today. pt asymptomatic.
[2021-09-28] MEDS: MAGNESIUM IV 2 GM/50 ML PIGGYBACK IVPB (15:00)
[2021-09-29 18:50] LABS: Cortisol, Serum 20.9 ug/dL
--- NOTE | 2021-10-12 14:20 | ONC.NURNOTE ---
PET scan needs peer to peer. Pt's provider visit moved to 10/31/21, PET scan rescheduled for 10/25/21. Fur Trimming Machine Operator left message with pt.
--- NOTE | 2021-10-17 11:34 | URNOTE ---
Request received for continued authorization of Atezolizumab J9022. Patient carries Medicaid as primary insurance. Per [facility] Atezolizumab 1200 mg has been approved for 1080 units (9 visits) from 10/16/2021 through 04/14/2022. Authorizaiton #[id number]
[2021-10-19 14:05] LABS: Basophils Absolute Auto 0.04 K/uL (0.00-0.30); Basophils Percent Auto 0.8 % (0.0-3.0); Eosinophils Absolute Auto 0.07 K/uL (0.00-0.50); Eosinophils Percent Auto 1.4 % (0.0-7.0); Hematocrit 40.9 % (33.0-51.0); Hemoglobin* 13.8 gm/dL (12.0-16.0); Immature Granulocytes Abs Auto 0.01 K/uL (0.00-0.30); Lymphocytes Percent Auto 14.2 % (20-44); Mean Corpuscular HGB Conc 34 gm/dL (32-36); Mean Corpuscular Hemoglobin 40 pg (26-34); Mean Corpuscular Volume 118 fL (80-100); Monocytes Percent Auto 9.5 % (0.0-11.0); Neutrophils Percent Auto 73.9 % (42.0-72.0); Platelet Count* 190 K/uL (140-440); RDW Coefficient of Variation % 12.8 % (11.5-15.5); Red Blood Count 3.47 m/uL (4.00-5.20); White Blood Count* 4.85 K/uL (4.50-11.00)
[2021-10-19 14:15] LABS: Slide Review Reflex No
[2021-10-19 14:27] LABS: Albumin* 4.2 g/dL (3.3-5.0); Chloride* 101 mmol/L (96-114)
[2021-10-19 14:28] LABS: Potassium* 3.5 mmol/L (3.6-5.1); Sodium* 139 mmol/L (135-149)
[2021-10-19 14:30] LABS: Bilirubin Total* 0.7 mg/dL (0.1-1.5); Carbon Dioxide* 29 mmol/L (20-32); Creatinine* 0.7 mg/dL (0.5-1.5); Est. Creatinine Clearance* 70.14; Estimated Glomerular Filt Rate 103 ml/min; Magnesium* 1.9 mg/dL (1.5-2.6)
[2021-10-19 14:31] LABS: Alanine Aminotransferase* 49 U/L (4-35); Alkaline Phosphatase* 111 U/L (40-150); Aspartate Amino Transferase* 107 U/L (12-35); Blood Urea Nitrogen* 8 mg/dL (7-30); Calcium* 8.5 mg/dL (8.4-10.6); Glucose* 125 mg/dL (60-115); Total Protein* 8.2 g/dL (6.0-8.3)
[2021-10-19] MEDS: SODIUM CHLORIDE 0.9 % (FLUSH) 10 ML SYRINGE IVF (15:12)
[2021-10-19] MEDS: HEPARIN 500 UNIT/5 ML SYRINGE IVF (15:18)
[2021-10-19 15:30] VITALS: BP 120/77; RESP 16; TEMP 36.1; O2SAT 93
[2021-10-21 13:33] LABS: Cortisol, Serum 24.5 ug/dL
--- NOTE | 2021-10-24 09:30 | ONC.NURNOTE ---
PET denied after peer to peer done by Dr. Lockwood. Roxy Orozco APRN ordered a CT scan to be done prior to pt's appt on 10/31/21. Body And Frame Man left message with pt with plan of care. [facility] called to cancel appt for PET on 10/25/21.
== END 2021-10-21 23:59 | disposition home or self-care (01) ==
LOC: CCIC 13:30
PROVIDERS: Clinical Nurse Specialist; PCP Family Medicine; Visit Provider Internal Medicine Hematology & Oncology
DX: C34.90 Malignant neoplasm of unspecified part of unspecified bronchus or lung (principal)
CPT/HCPCS: 36415; 36591; 80053; 82533; 83735; 84443; 85025; 96366; 96413; 99212; 99214; J1642; J2997; J3475; J7050; J9022

== ENCOUNTER 2021-10-29 13:30 | Outpatient (CLI) | payer BC, SELFPAY ==
--- NOTE | 2021-10-29 14:00 | CRLHL7_ITS ---
For Patients: As a result of the Century Cures Act, medical imaging exams and procedure reports are released immediately into your electronic medical record. You may view this report before your referring provider. If you have questions, please contact your health care provider. Indication: Non-small cell lung cancer Technique: Postcontrast CT chest, abdomen and pelvis. 78 cc Isovue 370 intravenous contrast. Please note that all CT scans at this facility use dose modulation, iterative reconstruction, and/or weight-based dosing when appropriate to reduce radiation dose to as low as reasonably achievable. Comparison: 07/23/2021 Findings: In the chest, there is a new small right pleural effusion. Soft tissue density along the azygoesophageal recess is similar. This soft tissue density extends along the right hilum to the bronchovascular structures of the right middle lobe as well as the proximal right upper lobe and right upper lobe airways. Persistent densities within the right middle lobe noted with air bronchograms. Scattered foci of ill-defined density again noted within the lingula and both lower lobes. No pneumothorax. Aberrant right subclavian artery again noted. No aortic dissection or aneurysm. No pulmonary embolism. No enlarged intrathoracic lymph nodes. No fracture. In the abdomen and pelvis, there is no suspicious intrahepatic mass. The gallbladder is incompletely distended with several small calcified foci associated with the gallbladder neck and within the Phrygian cap. No biliary obstruction. Pancreas is within normal limits. Spleen normal. Mild fatty infiltration of the liver. Adrenal glands normal. No hydronephrosis or solid renal mass. Stable subcentimeter retroperitoneal lymph nodes. Chronic cystic changes associated with the right ovary measuring 2 centimeters. Left ovary normal. Normal uterus and bladder. No bowel obstruction or free air. No free fluid or abscess. No diverticulitis. Appendix normal. No fracture. Impression: Similar soft tissue density in the azygoesophageal recess extending to the right hilum/bronchovascular region. However, there is now a small right pleural effusion. Stable patchy parenchymal densities elsewhere within the lung. Chronic cholelithiasis. Mild hepatic steatosis. Stable subcentimeter retroperitoneal lymph nodes. Please note that all CT scans at this facility use dose modulation, iterative reconstruction, and/or weight-based dosing when appropriate to reduce radiation dose to as low as reasonably achievable. Dictated by Cristóbal Burnette MD @ 10/29/2021 3:44:42 PM (Electronically Signed)
== END 2021-10-29 13:31 | disposition home or self-care (01) ==
LOC: CT 13:31
PROVIDERS: PCP Family Medicine; Visit Provider Clinical Nurse Specialist
DX: C34.90 Malignant neoplasm of unspecified part of unspecified bronchus or lung (principal); J90 Pleural effusion, not elsewhere classified; K80.20 Calculus of gallbladder without cholecystitis without obstruction; K76.0 Fatty (change of) liver, not elsewhere classified
CPT/HCPCS: 71260; 74177; Q9967

== ENCOUNTER 2022-01-29 13:43 | Outpatient (CLI) | payer BC, SELFPAY ==
--- NOTE | 2022-01-29 14:00 | CRLHL7_ITS ---
For Patients: As a result of the Century Cures Act, medical imaging exams and procedure reports are released immediately into your electronic medical record. You may view this report before your referring provider. If you have questions, please contact your health care provider. INDICATION: Non-small cell lung cancer. Follow-up. Restaging. TECHNIQUE: Contrast-enhanced CT of the chest, abdomen and pelvis. 80 cc nonionic Isovue-370 administered. COMPARISON: 10/29/2021 FINDINGS: CT chest: Near complete resolution of the previously identified tiny right-sided pleural effusion. There is only trace pleural fluid or pleural thickening today. Again noted is a soft tissue density along the azygoesophageal recess, unchanged extending from the right hilum inferiorly but unchanged. Chronic atelectatic change anteromedial right upper lobe of the lung may be post treatment in nature. The previously identified patchy densities within the right middle lobe, lingula, and both lower lobes of each lung have largely resolved except there is minimal probable dependent atelectasis at each lung base. No discrete intrapulmonary nodule or mass. Normal caliber thoracic aorta. Aberrant right subclavian artery which is a normal anatomic variant. Left-sided Port-A-Cath with its lead tip across midline in the superior vena cava. The included thyroid gland and included breasts are unremarkable. CT abdomen and pelvis: Hepatic fatty infiltration. No hepatic mass. No biliary ductal dilatation. Cholelithiasis. No splenomegaly. The pancreas, both adrenal glands, and both kidneys are within normal limits. Vascular calcification within a normal caliber abdominal aorta and iliac arteries. There is no bowel obstruction or ileus. There is no abdominal pelvic ascites or lymphadenopathy. The uterus is unremarkable. The urinary bladder is largely decompressed. Stable small right ovarian cyst image 225 series 3 measuring 2.2 cm unchanged. Normal appendix. The included skeleton is negative for lytic or blastic metastases. No evidence for acute fractures. IMPRESSION: 1. Stable soft tissue density right azygoesophageal recess. 2. Stable chronic infiltrate or atelectasis anteromedial right upper lobe of the lung likely post treatment in nature. 3. Resolution of the patchy infiltrates described on the prior CT except for minor dependent atelectasis at each lung base. 4. No thoracic lymphadenopathy. No central pulmonary emboli. 5. Hepatic fatty infiltration. Cholelithiasis. Stable 2.2 cm right ovarian cyst. Please note that all CT scans at this facility use dose modulation, iterative reconstruction, and/or weight-based dosing when appropriate to reduce radiation dose to as low as reasonably achievable. Dictated by All Garg MD @ 01/30/2022 8:19:55 AM (Electronically Signed)
--- NOTE | 2022-01-29 14:30 | CRLHL7_ITS ---
For Patients: As a result of the Century Cures Act, medical imaging exams and procedure reports are released immediately into your electronic medical record. You may view this report before your referring provider. If you have questions, please contact your health care provider. DATE: 01/29/2022. CLINICAL HISTORY: Secondary malignant brain neoplasm. TECHNIQUE: Multi-sequence, multiplanar MRI examination of the brain was performed. Contrast: 15mL of Dotarem was administered intravenously. COMPARISON: 07/23/2021. FINDINGS: No substantial interval change in the peripherally enhancing lesion with crenulated margins and adjacent T2 prolongation within the left cerebellar hemisphere, measuring approximately 10mm x 16mm x 16mm (CC x AP x TR), previously 10mm x 17mm x 17mm when measured similarly. No new pathologic intracranial enhancement to suggest new metastatic disease. There is no restricted diffusion in the brain to indicate the presence of acute ischemia. No extra-axial collection, mass effect, or midline shift. Brain parenchymal signal is otherwise within normal limits. Parenchymal volume is within normal limits for patient age. Ventricles are normal in size and morphology. The orbits are unremarkable. Mild mucosal thickening of the ethmoid air cells. The mastoid air cells are clear. The calvarium is unremarkable. IMPRESSION: 1. No significant interval change in the peripherally enhancing lesion in the left cerebellar hemisphere, with adjacent T2 hyperintense signal, consistent with treated metastasis. 2. No new intracranial metastases. 3. No acute intracranial abnormality. Dictated by Kevin Trent MD @ 01/29/2022 5:53:16 PM (Electronically Signed)
== END 2022-01-29 13:44 | disposition home or self-care (01) ==
LOC: CT 13:44
PROVIDERS: PCP Family Medicine; Visit Provider Physician Assistant
DX: C34.90 Malignant neoplasm of unspecified part of unspecified bronchus or lung (principal); C79.31 Secondary malignant neoplasm of brain; K76.0 Fatty (change of) liver, not elsewhere classified
CPT/HCPCS: 70553; 71260; 74177; A9575; Q9967

== ENCOUNTER 2022-04-11 13:30 | Outpatient (RCR) | payer BC, SELFPAY ==
[2021-11-12 13:42] VITALS: BP 113/77; PULSE 84; RESP 16; TEMP 36.2; O2SAT 93
[2021-11-12 14:12] LABS: Basophils Absolute Auto 0.03 K/uL (0.00-0.30); Basophils Percent Auto 0.5 % (0.0-3.0); Eosinophils Absolute Auto 0.05 K/uL (0.00-0.50); Eosinophils Percent Auto 0.9 % (0.0-7.0); Hematocrit 38.7 % (33.0-51.0); Hemoglobin* 13.4 gm/dL (12.0-16.0); Immature Granulocytes Abs Auto 0.01 K/uL (0.00-0.30); Lymphocytes Percent Auto 9.6 % (20-44); Mean Corpuscular HGB Conc 35 gm/dL (32-36); Mean Corpuscular Hemoglobin 41 pg (26-34); Mean Corpuscular Volume 117 fL (80-100); Neutrophils Percent Auto 80.8 % (42.0-72.0); Platelet Count* 165 K/uL (140-440); RDW Coefficient of Variation % 12.8 % (11.5-15.5); Red Blood Count 3.31 m/uL (4.00-5.20)
[2021-11-12 14:27] LABS: Albumin* 4.2 g/dL (3.3-5.0); Chloride* 99 mmol/L (96-114)
[2021-11-12 14:28] LABS: Potassium* 3.7 mmol/L (3.6-5.1); Sodium* 138 mmol/L (135-149)
[2021-11-12 14:30] LABS: Alanine Aminotransferase* 44 U/L (4-35); Alkaline Phosphatase* 95 U/L (40-150); Aspartate Amino Transferase* 91 U/L (12-35); Bilirubin Total* 0.8 mg/dL (0.1-1.5); Blood Urea Nitrogen* 12 mg/dL (7-30); Carbon Dioxide* 29 mmol/L (20-32); Creatinine* 0.7 mg/dL (0.5-1.5); Estimated Glomerular Filt Rate 103 ml/min; Total Protein* 7.8 g/dL (6.0-8.3)
[2021-11-12 14:31] LABS: Calcium* 8.6 mg/dL (8.4-10.6); Glucose* 130 mg/dL (60-115); Magnesium* 1.3 mg/dL (1.5-2.6)
[2021-11-12 14:47] LABS: Slide Review Reflex No
[2021-11-12] MEDS: MAGNESIUM SULFATE 2 GM/50 ML PIGGYBACK IVPB (15:12)
[2021-11-14 11:47] LABS: Cortisol, Serum 21.2 ug/dL
[2021-12-04 15:06] LABS: Basophils Absolute Auto 0.04 K/uL (0.00-0.30); Basophils Percent Auto 0.9 % (0.0-3.0); Eosinophils Absolute Auto 0.09 K/uL (0.00-0.50); Eosinophils Percent Auto 1.9 % (0.0-7.0); Hematocrit 40.3 % (33.0-51.0); Lymphocytes Percent Auto 15.7 % (20-44); Mean Corpuscular HGB Conc 35 gm/dL (32-36); Mean Corpuscular Hemoglobin 41 pg (26-34); Mean Corpuscular Volume 118 fL (80-100); Monocytes Percent Auto 9.8 % (0.0-11.0); Neutrophils Absolute Auto 3.37 K/uL (1.7-7.0); Neutrophils Percent Auto 71.7 % (42.0-72.0); Platelet Count* 170 K/uL (140-440); RDW Coefficient of Variation % 12.8 % (11.5-15.5); Red Blood Count 3.43 m/uL (4.00-5.20)
[2021-12-04 15:09] LABS: Slide Review Reflex No
[2021-12-04 15:17] LABS: Hemoglobin A1C* 5.96 % (0-5.6)
[2021-12-04 15:21] LABS: Albumin* 4.8 g/dL (3.3-5.0)
[2021-12-04 15:22] LABS: Chloride* 100 mmol/L (96-114); Potassium* 3.7 mmol/L (3.6-5.1); Sodium* 139 mmol/L (135-149)
[2021-12-04 15:23] LABS: Cholesterol* 217 mg/dL (90-199)
[2021-12-04 15:24] LABS: Bilirubin Total* 0.8 mg/dL (0.1-1.5); Carbon Dioxide* 25 mmol/L (20-32); Creatinine* 0.6 mg/dL (0.5-1.5); Estimated Glomerular Filt Rate 107 ml/min; HDL Cholesterol* 62 mg/dL (>=50); LDL Cholesterol Calculated 109 mg/dL (<100); Triglycerides* 232 mg/dL (40-149)
[2021-12-04 15:25] LABS: Alanine Aminotransferase* 54 U/L (4-35); Alkaline Phosphatase* 95 U/L (40-150); Aspartate Amino Transferase* 161 U/L (12-35); Blood Urea Nitrogen* 7 mg/dL (7-30); Calcium* 9.3 mg/dL (8.4-10.6); Glucose* 120 mg/dL (60-115); Total Protein* 8.8 g/dL (6.0-8.3)
[2021-12-04 16:09] LABS: Magnesium* 1.5 mg/dL (1.5-2.6)
--- NOTE | 2021-12-04 16:10 | ONC.NURNOTE ---
Pt scheduled for Labs/Tecentriq today at 1300; arrived at 1430 d/t oversleeping from a nap. Labs drawn; unable to give infusion d/t labs with expected run time 1:15+ with TSH level. Rescheduled infusion for Thurs 12/06 @1315.
--- NOTE | 2021-12-05 16:43 | ONC.NURNOTE ---
Left a message with Jackie that her treatment thurs is cancelled due to elevated LFT>
[2021-12-07 01:34] LABS: Cortisol, Serum 28.8 ug/dL
[2021-12-12 15:22] LABS: Albumin* 4.7 g/dL (3.3-5.0)
[2021-12-12 15:25] LABS: Alanine Aminotransferase* 42 U/L (4-35); Alkaline Phosphatase* 102 U/L (40-150); Aspartate Amino Transferase* 77 U/L (12-35); Bilirubin Direct* 0.2 mg/dL (0.0-0.5); Bilirubin Total* 0.7 mg/dL (0.1-1.5); Total Protein* 8.3 g/dL (6.0-8.3)
[2022-01-02 13:13] VITALS: BP 105/62; PULSE 86; RESP 16; TEMP 35.6; O2SAT 91
[2022-01-02 13:40] LABS: Basophils Absolute Auto 0.03 K/uL (0.00-0.30); Basophils Percent Auto 0.6 % (0.0-3.0); Eosinophils Absolute Auto 0.05 K/uL (0.00-0.50); Hematocrit 35.6 % (33.0-51.0); Hemoglobin* 12.1 gm/dL (12.0-16.0); Immature Granulocytes Abs Auto 0.01 K/uL (0.00-0.30); Lymphocytes Percent Auto 11.9 % (20-44); Mean Corpuscular HGB Conc 34 gm/dL (32-36); Mean Corpuscular Hemoglobin 41 pg (26-34); Mean Corpuscular Volume 120 fL (80-100); Monocytes Percent Auto 9.8 % (0.0-11.0); Neutrophils Percent Auto 76.5 % (42.0-72.0); Platelet Count* 175 K/uL (140-440); RDW Coefficient of Variation % 13.5 % (11.5-15.5); Red Blood Count 2.98 m/uL (4.00-5.20); White Blood Count* 4.79 K/uL (4.50-11.00)
[2022-01-02 13:42] LABS: Slide Review Reflex No
[2022-01-02 13:53] LABS: Albumin* 4.3 g/dL (3.3-5.0); Chloride* 103 mmol/L (96-114); Potassium* 3.3 mmol/L (3.6-5.1); Sodium* 140 mmol/L (135-149)
[2022-01-02 13:55] LABS: Creatinine* 0.6 mg/dL (0.5-1.5); Estimated Glomerular Filt Rate 107 ml/min
[2022-01-02 13:56] LABS: Alanine Aminotransferase* 38 U/L (4-35); Alkaline Phosphatase* 90 U/L (40-150); Aspartate Amino Transferase* 76 U/L (12-35); Bilirubin Total* 0.7 mg/dL (0.1-1.5); Blood Urea Nitrogen* 13 mg/dL (7-30); Calcium* 8.5 mg/dL (8.4-10.6); Carbon Dioxide* 29 mmol/L (20-32); Glucose* 128 mg/dL (60-115); Total Protein* 7.3 g/dL (6.0-8.3)
[2022-01-02] MEDS: POTASSIUM CITRATE 10 MEQ TABLET.ER 20 MEQ PO (14:34)
[2022-01-02 14:46] LABS: Magnesium* 1.7 mg/dL (1.5-2.6)
--- NOTE | 2022-01-03 09:23 | ONC.NURNOTE ---
Called patient and LMOM giving her TSH results and to call with any questions or concerns.
[2022-01-04 04:13] LABS: Cortisol, Serum 19.5 ug/dL
--- NOTE | 2022-01-23 14:21 | ONC.NURNOTE ---
Pt did not show up for appt today, keno writer / runner left message with pt to call to reschedule.
[2022-01-25 14:16] LABS: Basophils Absolute Auto 0.03 K/uL (0.00-0.30); Basophils Percent Auto 0.5 % (0.0-3.0); Eosinophils Absolute Auto 0.08 K/uL (0.00-0.50); Eosinophils Percent Auto 1.3 % (0.0-7.0); Hematocrit 39.7 % (33.0-51.0); Hemoglobin* 13.5 gm/dL (12.0-16.0); Immature Granulocytes Abs Auto 0.01 K/uL (0.00-0.30); Immature Granulocytes Pct Auto 0.2 %; Lymphocytes Percent Auto 7.8 % (20-44); Mean Corpuscular HGB Conc 34 gm/dL (32-36); Mean Corpuscular Hemoglobin 41 pg (26-34); Mean Corpuscular Volume 119 fL (80-100); Monocytes Percent Auto 6.7 % (0.0-11.0); Neutrophils Percent Auto 83.5 % (42.0-72.0); Platelet Count* 151 K/uL (140-440); RDW Coefficient of Variation % 13.2 % (11.5-15.5); Red Blood Count 3.33 m/uL (4.00-5.20); White Blood Count* 6.01 K/uL (4.50-11.00)
[2022-01-25 14:19] LABS: Slide Review Reflex No
[2022-01-25] MEDS: ALTEPLASE 2 MG INJ IVF (14:27)
[2022-01-25 14:28] LABS: Albumin* 4.6 g/dL (3.3-5.0)
[2022-01-25 14:29] LABS: Chloride* 100 mmol/L (96-114); Potassium* 3.6 mmol/L (3.6-5.1); Sodium* 139 mmol/L (135-149)
[2022-01-25 14:31] LABS: Aspartate Amino Transferase* 100 U/L (12-35); Carbon Dioxide* 27 mmol/L (20-32); Creatinine* 0.6 mg/dL (0.5-1.5); Estimated Glomerular Filt Rate 107 ml/min; Total Protein* 8.1 g/dL (6.0-8.3)
[2022-01-25 14:32] LABS: Alanine Aminotransferase* 45 U/L (4-35); Alkaline Phosphatase* 90 U/L (40-150); Blood Urea Nitrogen* 12 mg/dL (7-30); Glucose* 129 mg/dL (60-115)
--- NOTE | 2022-01-25 15:18 | ONC.NURNOTE ---
Pt here for infusion today; port flushes slightly stiffly and gives limited blood return, despite extensive flushing and repositioning. Cathflo x 1 over 90 min; worked well. Port flushes smoothly with robust blood return.
[2022-01-25 15:19] VITALS: BP 122/77; PULSE 88; RESP 18; TEMP 36.2; O2SAT 93
--- NOTE | 2022-02-13 10:20 | PC.NURSE ---
Pt called today to check in as she is due for infusion later today. Pt shares that her has Influenza A and is going back in today for a worsening cough. She, herself, has a new cough for the last two days. RN discussed case with [facility] and staff and pt was advised to postpone her infusion today and go to her PCP to be evaluated and tested. She will do so. Pt will call or this RN will check in on Friday to re-evaluate. Support offered.
--- NOTE | 2022-02-15 14:06 | PC.NURSE ---
Addendum entered by Angelina Mcqueen RN 02/18/22 14:15: Called patient and she notes that she also ended up getting influenza. She notes that last fever was on February 15. Sore throat has resolved, but continues to be fatigued with a cough and headache. Patient wanted to come in tomorrow, moved appointment to Friday so that MD can determine if safe to treat based on symptoms. Original Note: Called pt today to check in as she cancelled her infusion on Friday due to her having worsening Influenza A and her having a new cough. RN had planned with Jackie to check in today to see how she was feeling and whether or not she had gone to her PCP to get tested, etc. Did not reach Jackie. LM on per primary number and invited a call back with an update. Pt's infusion needs to get re-scheduled when she is feeling better.
[2022-02-20 13:23] VITALS: BP 127/80; PULSE 80; RESP 16; TEMP 35.9; O2SAT 93
[2022-02-20] MEDS: ALTEPLASE 2 MG INJ IVF (13:48)
[2022-02-20 13:51] LABS: Basophils Absolute Auto 0.02 K/uL (0.00-0.30); Basophils Percent Auto 0.4 % (0.0-3.0); Eosinophils Absolute Auto 0.05 K/uL (0.00-0.50); Eosinophils Percent Auto 0.9 % (0.0-7.0); Hematocrit 37.3 % (33.0-51.0); Hemoglobin* 12.7 gm/dL (12.0-16.0); Immature Granulocytes Abs Auto 0.01 K/uL (0.00-0.30); Immature Granulocytes Pct Auto 0.2 %; Lymphocytes Percent Auto 10.6 % (20-44); Mean Corpuscular HGB Conc 34 gm/dL (32-36); Mean Corpuscular Hemoglobin 41 pg (26-34); Mean Corpuscular Volume 119 fL (80-100); Monocytes Percent Auto 7.9 % (0.0-11.0); Platelet Count* 161 K/uL (140-440); Red Blood Count 3.13 m/uL (4.00-5.20)
[2022-02-20 14:04] LABS: Slide Review Reflex No
[2022-02-20 15:52] LABS: Albumin* 4.6 g/dL (3.3-5.0); Chloride* 108 mmol/L (96-114); Sodium* 142 mmol/L (135-149)
[2022-02-20 15:53] LABS: Potassium* 3.5 mmol/L (3.6-5.1)
[2022-02-20 15:55] LABS: Alkaline Phosphatase* 93 U/L (40-150); Aspartate Amino Transferase* 79 U/L (12-35); Bilirubin Total* 0.6 mg/dL (0.1-1.5); Blood Urea Nitrogen* 10 mg/dL (7-30); Carbon Dioxide* 22 mmol/L (20-32); Creatinine* 0.6 mg/dL (0.5-1.5); Estimated Glomerular Filt Rate 107 ml/min; Total Protein* 7.6 g/dL (6.0-8.3)
[2022-02-20 15:56] LABS: Alanine Aminotransferase* 42 U/L (4-35); Glucose* 117 mg/dL (60-115)
--- NOTE | 2022-02-20 16:12 | PC.NURSE ---
Discussed pt's labs with Dr. Lockwood: TSH 4.5 (up from 3.16) K 3.5 Cortisol pending MD ok'd treatment today given above results. gave RN verbal order to add on a Mg, this was ordered and done.
[2022-02-20 16:20] LABS: Magnesium* 1.4 mg/dL (1.5-2.6)
--- NOTE | 2022-02-20 17:08 | PC.NURSE ---
PORT Pt present at [facility] today for her infusion. Port accessed without incident. No blood return obtained. TPA instilled x 45 minutes. Blood return came enough to waste 5 cc of blood. Labs had been done previously via peripheral lab draw. At completion of infusion, RN attempted to get a blood return and was unable to get one. Port flushed with saline and heparin per protocol and deaccessed. Will discuss with her med onc team re: next steps for port evaluation.
[2022-02-22 03:16] LABS: Cortisol, Serum 17.5 ug/dL
[2022-03-13 13:50] VITALS: BP 131/84; PULSE 81; RESP 16; TEMP 36.3; O2SAT 93
[2022-03-13 14:43] LABS: Basophils Absolute Auto 0.03 K/uL (0.00-0.30); Basophils Percent Auto 0.6 % (0.0-3.0); Eosinophils Absolute Auto 0.06 K/uL (0.00-0.50); Eosinophils Percent Auto 1.2 % (0.0-7.0); Hematocrit 39.3 % (33.0-51.0); Hemoglobin* 13.4 gm/dL (12.0-16.0); Immature Granulocytes Abs Auto 0.01 K/uL (0.00-0.30); Immature Granulocytes Pct Auto 0.2 %; Lymphocytes Percent Auto 10.2 % (20-44); Mean Corpuscular HGB Conc 34 gm/dL (32-36); Mean Corpuscular Hemoglobin 40 pg (26-34); Mean Corpuscular Volume 118 fL (80-100); Monocytes Percent Auto 8.3 % (0.0-11.0); Neutrophils Percent Auto 79.5 % (42.0-72.0); Platelet Count* 140 K/uL (140-440); RDW Coefficient of Variation % 12.7 % (11.5-15.5); Red Blood Count 3.33 m/uL (4.00-5.20); White Blood Count* 4.92 K/uL (4.50-11.00)
[2022-03-13 14:45] LABS: Slide Review Reflex No
[2022-03-13 14:56] LABS: Albumin* 4.6 g/dL (3.3-5.0); Chloride* 103 mmol/L (96-114); Sodium* 139 mmol/L (135-149)
[2022-03-13 14:57] LABS: Potassium* 3.6 mmol/L (3.6-5.1)
[2022-03-13 14:59] LABS: Alanine Aminotransferase* 42 U/L (4-35); Alkaline Phosphatase* 87 U/L (40-150); Aspartate Amino Transferase* 84 U/L (12-35); Bilirubin Total* 0.9 mg/dL (0.1-1.5); Blood Urea Nitrogen* 10 mg/dL (7-30); Carbon Dioxide* 27 mmol/L (20-32); Creatinine* 0.6 mg/dL (0.5-1.5); Estimated Glomerular Filt Rate 107 ml/min; Glucose* 119 mg/dL (60-115)
[2022-03-13 15:10] LABS: Magnesium* 1.5 mg/dL (1.5-2.6)
[2022-03-13] MEDS: SODIUM CHLORIDE 0.9 % (FLUSH) 10 ML SYRINGE IVF (16:47)
[2022-03-13] MEDS: 0.9 % SODIUM CHLORIDE 250 ml IV (16:48)
[2022-03-13] MEDS: HEPARIN 500 UNIT/5 ML SYRINGE IVF (16:49)
[2022-03-15 16:44] LABS: Cortisol, Serum 18.3 ug/dL
--- NOTE | 2022-04-03 14:54 | ONC.NURNOTE ---
Pt did not show up for appt today, called and spoke to pt. She states she was diagnosed with Covid last stephen, 03/29/21. Symptoms of sore throat and congestion started on 03/29/21, pt is still very congested. Encouraged pt to be seen by primary care if symptoms worsen. Pt rescheduled for 04/11/22, pt verbalized understanding of plan of care.
[2022-04-11 14:02] LABS: Basophils Absolute Auto 0.03 K/uL (0.00-0.30); Basophils Percent Auto 0.5 % (0.0-3.0); Eosinophils Percent Auto 1.7 % (0.0-7.0); Hematocrit 41.6 % (33.0-51.0); Hemoglobin* 14.1 gm/dL (12.0-16.0); Immature Granulocytes Abs Auto 0.01 K/uL (0.00-0.30); Immature Granulocytes Pct Auto 0.2 %; Mean Corpuscular HGB Conc 34 gm/dL (32-36); Mean Corpuscular Hemoglobin 40 pg (26-34); Mean Corpuscular Volume 118 fL (80-100); Monocytes Percent Auto 9.9 % (0.0-11.0); Neutrophils Percent Auto 75.7 % (42.0-72.0); Platelet Count* 166 K/uL (140-440); RDW Coefficient of Variation % 12.8 % (11.5-15.5); Red Blood Count 3.53 m/uL (4.00-5.20); White Blood Count* 5.94 K/uL (4.50-11.00)
[2022-04-11 14:06] VITALS: BP 122/85; PULSE 86; RESP 16; TEMP 36; O2SAT 93
[2022-04-11 14:20] LABS: Albumin* 4.5 g/dL (3.3-5.0); Chloride* 102 mmol/L (96-114); Potassium* 3.4 mmol/L (3.6-5.1); Sodium* 139 mmol/L (135-149)
[2022-04-11 14:22] LABS: Creatinine* 0.6 mg/dL (0.5-1.5); Estimated Glomerular Filt Rate 107 ml/min; Magnesium* 1.6 mg/dL (1.5-2.6)
[2022-04-11 14:23] LABS: Alanine Aminotransferase* 39 U/L (4-35); Alkaline Phosphatase* 118 U/L (40-150); Aspartate Amino Transferase* 92 U/L (12-35); Bilirubin Total* 1.1 mg/dL (0.1-1.5); Blood Urea Nitrogen* 13 mg/dL (7-30); Calcium* 8.6 mg/dL (8.4-10.6); Carbon Dioxide* 28 mmol/L (20-32); Glucose* 130 mg/dL (60-115); Total Protein* 8.1 g/dL (6.0-8.3)
[2022-04-11 14:26] LABS: Slide Review Reflex Yes
[2022-04-11 14:32] LABS: Slide Review Acceptable Review (Acceptable)
[2022-04-11] MEDS: SODIUM CHLORIDE 0.9 % (FLUSH) 10 ML SYRINGE IVF (16:20)
[2022-04-11] MEDS: 0.9 % SODIUM CHLORIDE 250 ml IV (16:20)
[2022-04-11] MEDS: HEPARIN 500 UNIT/5 ML SYRINGE IVF (16:20)
[2022-04-15 12:04] LABS: Cortisol, Serum 22.8 ug/dL
== END 2022-04-29 23:59 | disposition home or self-care (01) ==
LOC: CCIC 13:30
PROVIDERS: Clinical Nurse Specialist; PCP Family Medicine; Referring Provider Family Medicine; Visit Provider Internal Medicine Hematology & Oncology
DX: C34.91 Malignant neoplasm of unspecified part of right bronchus or lung (principal)
CPT/HCPCS: 36415; 36591; 80053; 80061; 80076; 82533; 83036; 83735; 84443; 85025; 96366; 96376; 96413; 99212; 99213; 99214; A9270; J1642; J2997; J3475; J7050; J9022

== ENCOUNTER 2022-06-03 15:03 | Outpatient (CLI) | payer BC, SELFPAY ==
--- NOTE | 2022-06-03 15:00 | CRLHL7_ITS ---
For Patients: As a result of the 21st Century Cures Act, medical imaging exams and procedure reports are released immediately into your electronic medical record. You may view this report before your referring provider. If you have questions, please contact your health care provider. Indication: small cell lung cancer, mets to brain Technique: Postcontrast CT chest, abdomen and pelvis. 79 cc Isovue 370 intravenous contrast. Please note that all CT scans at this facility use dose modulation, iterative reconstruction, and/or weight-based dosing when appropriate to reduce radiation dose to as low as reasonably achievable. Comparison: 01/29/2022, 10/29/2021, 07/23/2021 Findings: In the chest, left-sided Port-A-Cath is present. Similar soft tissue density about the azygoesophageal recess. Soft tissue thickening between the right mainstem bronchus and esophagus is also unchanged. Conchal vascular soft tissue thickening in the right upper lobe is stable. No pleural or pericardial effusion. Visualized thyroid normal. Incidental retroesophageal course of the right subclavian artery. No enlarged mediastinal lymph nodes. Similar appearance of the SVC no intrinsic osseous lesion or fracture. Patchy reticular densities are similar within both lower lobes and lingula along with the periphery of the right upper lobe. No pneumothorax or pulmonary edema. In the abdomen, there is diffuse low attenuation of the hepatic parenchyma without suspicious intrahepatic mass. The spleen is normal. Similar appearance of the gallbladder with a stone material inferiorly and ill-defined hyperdense material at the gastric fundus. The biliary tree is normal. Normal pancreas. The adrenal glands are normal. Normal kidneys. Atherosclerotic disease. No aneurysm. No retroperitoneal or mesenteric adenopathy. No hiatal hernia. The stomach appears normal. Normal appearance of the small bowel. In the pelvis, the uterus is unremarkable. Stable right ovarian cyst. Left ovary normal. Bladder incompletely distended. No bowel obstruction or free air. No free fluid. Normal appendix. The pelvic sidewall and inguinal lymph nodes appear normal. No fracture. Impression: Stable appearance of the soft tissue fullness regarding the as azygoesophageal recess and soft tissue thickening about the right upper lobe bronchovascular structures. Stable patchy reticular densities within lungs bilaterally. No adenopathy in the chest, abdomen or pelvis. No hepatic mass. Overall, no significant change compared to the prior study. Please note that all CT scans at this facility use dose modulation, iterative reconstruction, and/or weight-based dosing when appropriate to reduce radiation dose to as low as reasonably achievable. Dictated by Cristóbal Burnette MD @ 06/04/2022 9:41:46 AM (Electronically Signed)
== END 2022-06-03 15:04 | disposition home or self-care (01) ==
LOC: CT 15:04
PROVIDERS: PCP Family Medicine; Visit Provider Internal Medicine Hematology & Oncology
DX: C34.90 Malignant neoplasm of unspecified part of unspecified bronchus or lung (principal)
CPT/HCPCS: 71260; 74177; Q9967

== ENCOUNTER 2022-06-13 09:17 | Outpatient (CLI) | payer BC, SELFPAY | END 2022-06-13 09:18 | disposition home or self-care (01) | LOC: NFLDREF 09:18 | PROVIDERS: PCP Family Medicine; Visit Provider Family Medicine | DX: Z20.822 Contact with and (suspected) exposure to COVID-19 (principal); J02.9 Acute pharyngitis, unspecified | CPT/HCPCS: 87651 ==

== ENCOUNTER 2022-09-27 15:33 | Outpatient (CLI) | payer BC, SELFPAY ==
--- NOTE | 2022-09-27 16:00 | CRLHL7_ITS ---
For Patients: As a result of the 21st Century Cures Act, medical imaging exams and procedure reports are released immediately into your electronic medical record. You may view this report before your referring provider. If you have questions, please contact your health care provider. INDICATION: Small cell carcinoma of right lung. IMPRESSION: 06/03/2022. TECHNIQUE: CT of the chest, abdomen and pelvis with IV contrast. 80 cc of Isovue 370 administered intravenously. FINDINGS: Chest: There is a left subclavian vein approach port present terminating at the level of the proximal SVC. Possible braulio catheter thrombus or fibrin sheath present. Correlate with function (aspiration and flushing). This could also be mixing artifact. No central pulmonary embolism. Stable soft tissue thickening/fullness, however, in a bandlike appearance as has been seen previously in the right azygoesophageal recess between the esophagus and right mainstem bronchus. Residual or recurrent disease cannot be excluded. Linear bandlike radiation change also seen in the right upper lobe at same level. No pneumothorax or pleural effusion. Subpleural ground-glass in the posterior left lower lobe and right lower lobe also seen, potentially also radiation change, chronic. No new focal or diffuse pulmonary opacities. No pleural effusion or pneumothorax. No pericardial effusion. No cardiomegaly. Diffuse hepatic steatosis. Small gallstones without gallbladder distention. The portal and hepatic veins are patent/beyond the abdomen and pelvis. The spleen is normal in size. Adrenal glands appear unremarkable. No suspicious pancreatic abnormality. No intra or extrahepatic biliary ductal dilatation. The kidneys enhance symmetrically without hydronephrosis bilaterally. Colonic diverticulosis. No bowel obstruction. No suspicious focal wall thickening. Small right ovarian cyst. The uterus appears unremarkable. No free intraperitoneal air or fluid. No suspicious retroperitoneal or mesenteric lymphadenopathy. Adrenal glands appear normal. The urinary bladder is nondistended. Atherosclerotic changes in the abdominal aorta and branch vessels. No abdominal aortic aneurysm. The proximal visceral arteries are patent with less than 50 percent stenosis of the SMA. No aggressive appearing osseous lesion. IMPRESSION: 1. Stable appearance linear bandlike soft tissues fullness/thickening at the right azygoesophageal recess between the esophagus and right mainstem bronchus, most likely radiation change without definite new focal nodular enhancement to suggest residual or recurrent disease. 2. No evidence of metastatic disease in the abdomen or pelvis. Please note that all CT scans at this facility use dose modulation, iterative reconstruction, and/or weight-based dosing when appropriate to reduce radiation dose to as low as reasonably achievable. Dictated by Mauricio Resendiz MD @ 09/30/2022 9:37:46 AM (Electronically Signed)
== END 2022-09-27 15:34 | disposition home or self-care (01) ==
LOC: CT 15:34
PROVIDERS: PCP Family Medicine; Visit Provider Internal Medicine Hematology & Oncology
DX: C34.90 Malignant neoplasm of unspecified part of unspecified bronchus or lung (principal)
CPT/HCPCS: 71260; 74177; Q9967

== ENCOUNTER 2022-10-29 15:55 | Outpatient (RCR) | payer BC, SELFPAY ==
--- NOTE | 2022-05-02 11:29 | URNOTE ---
Request received for authorization for atezolizumab (Tecentriq) (J9022). Medicaid as primary insurance. Per [facility] Atezolizumab 1200 mg has been approved for 1080 units (9 visits) from 04/30/2022 through 10/28/2022. Authorization #[id number].
[2022-05-02 13:30] VITALS: BP 107/71; PULSE 84; RESP 18; TEMP 36.2; O2SAT 93
[2022-05-02 13:58] LABS: Basophils Absolute Auto 0.02 K/uL (0.00-0.30); Basophils Percent Auto 0.3 % (0.0-3.0); Eosinophils Absolute Auto 0.06 K/uL (0.00-0.50); Eosinophils Percent Auto 0.9 % (0.0-7.0); Hematocrit 40.4 % (33.0-51.0); Hemoglobin* 13.7 gm/dL (12.0-16.0); Immature Granulocytes Abs Auto 0.01 K/uL (0.00-0.30); Immature Granulocytes Pct Auto 0.2 %; Lymphocytes Percent Auto 10.7 % (20-44); Mean Corpuscular HGB Conc 34 gm/dL (32-36); Mean Corpuscular Hemoglobin 40 pg (26-34); Mean Corpuscular Volume 117 fL (80-100); Monocytes Percent Auto 8.8 % (0.0-11.0); Neutrophils Percent Auto 79.1 % (42.0-72.0); Platelet Count* 142 K/uL (140-440); RDW Coefficient of Variation % 12.5 % (11.5-15.5); Red Blood Count 3.46 m/uL (4.00-5.20); White Blood Count* 6.33 K/uL (4.50-11.00)
[2022-05-02 14:18] LABS: Albumin* 4.3 g/dL (3.3-5.0)
[2022-05-02 14:19] LABS: Chloride* 103 mmol/L (96-114); Potassium* 3.8 mmol/L (3.6-5.1); Sodium* 139 mmol/L (135-149)
[2022-05-02 14:21] LABS: Aspartate Amino Transferase* 88 U/L (12-35); Bilirubin Total* 0.8 mg/dL (0.1-1.5); Carbon Dioxide* 30 mmol/L (20-32); Creatinine* 0.7 mg/dL (0.5-1.5); Estimated Glomerular Filt Rate 103 ml/min
[2022-05-02 14:22] LABS: Alanine Aminotransferase* 39 U/L (4-35); Alkaline Phosphatase* 112 U/L (40-150); Blood Urea Nitrogen* 15 mg/dL (7-30); Calcium* 8.9 mg/dL (8.4-10.6); Glucose* 122 mg/dL (60-115); Total Protein* 8.1 g/dL (6.0-8.3)
[2022-05-02 15:14] LABS: Magnesium* 1.5 mg/dL (1.5-2.6)
[2022-05-02 23:56] LABS: Slide Review Reflex No
[2022-05-04 22:05] LABS: Cortisol, Serum 19.9 ug/dL
--- NOTE | 2022-05-06 14:11 | ONC.NURNOTE ---
Patient information was given to chief writer stating that she is refusing to have CT scan if she can not have her MRI at the same time. This was discussed with Radiation, and they don't want the MRI sooner than July. Patient wants both scans done in July then. Attempted to contact patient via phone to discuss this and let her know that she was moved from Dr. Cortez's schedule to Dr. Lockwood's schedule on 06/13/2022. Unable to leave message. Will attempt to call later.
[2022-05-23 14:17] VITALS: BP 115/71; PULSE 88; RESP 16; O2SAT 93
[2022-05-23 14:57] LABS: Basophils Absolute Auto 0.03 K/uL (0.00-0.30); Basophils Percent Auto 0.4 % (0.0-3.0); Eosinophils Absolute Auto 0.07 K/uL (0.00-0.50); Hematocrit 42.2 % (33.0-51.0); Hemoglobin* 14.2 gm/dL (12.0-16.0); Immature Granulocytes Abs Auto 0.06 K/uL (0.00-0.30); Immature Granulocytes Pct Auto 0.9 %; Mean Corpuscular HGB Conc 34 gm/dL (32-36); Mean Corpuscular Hemoglobin 39 pg (26-34); Mean Corpuscular Volume 116 fL (80-100); Monocytes Percent Auto 7.2 % (0.0-11.0); Neutrophils Percent Auto 81.5 % (42.0-72.0); Platelet Count* 162 K/uL (140-440); RDW Coefficient of Variation % 12.7 % (11.5-15.5); Red Blood Count 3.64 m/uL (4.00-5.20); White Blood Count* 6.99 K/uL (4.50-11.00)
[2022-05-23 14:59] LABS: Slide Review Reflex No
[2022-05-23 15:14] LABS: Albumin* 4.6 g/dL (3.3-5.0); Chloride* 103 mmol/L (96-114)
[2022-05-23 15:15] LABS: Potassium* 3.7 mmol/L (3.6-5.1); Sodium* 140 mmol/L (135-149)
[2022-05-23 15:17] LABS: Bilirubin Total* 0.7 mg/dL (0.1-1.5); Carbon Dioxide* 27 mmol/L (20-32); Creatinine* 0.6 mg/dL (0.5-1.5); Estimated Glomerular Filt Rate 107 ml/min
[2022-05-23 15:18] LABS: Alanine Aminotransferase* 40 U/L (4-35); Alkaline Phosphatase* 99 U/L (40-150); Aspartate Amino Transferase* 78 U/L (12-35); Blood Urea Nitrogen* 10 mg/dL (7-30); Calcium* 9.1 mg/dL (8.4-10.6); Glucose* 118 mg/dL (60-115); Total Protein* 8.5 g/dL (6.0-8.3)
[2022-05-23 15:44] LABS: Magnesium* 1.6 mg/dL (1.5-2.6)
[2022-05-25 21:24] LABS: Cortisol, Serum 17.4 ug/dL
--- NOTE | 2022-06-12 14:12 | ONC.NURNOTE ---
Addendum entered by Angelina Mcqueen RN 06/13/22 09:46: Patient was seen by primary care this morning. Influenza, COVID, and strep are all pending. Patient wants her CT results. Impression was read to her as requested, but told that provider will look at results and clinic nurse will call with the plan after the lunch hour. Patient notes that she will take her phone with her. Original Note: Patient called office, she is feeling ill. She notes that she noted a sore throat that started on Friday and worsened into Friday. She notes fevers, itchy ears, and a headache now as well. She is wondering if she should come in for appointment tomorrow. She was told that she should be seen by primary care to determine cause of illness, and that sounds like strep throat. She did self test for covid and was negative. She was told that after she sees primary care and is feeling better to call office to get set up for another appointment. She is agreeable to this plan.
[2022-06-20 13:50] LABS: Basophils Percent Auto 0.7 % (0.0-3.0); Eosinophils Percent Auto 3.1 % (0.0-7.0); Hematocrit 42.4 % (33.0-51.0); Hemoglobin* 14.2 gm/dL (12.0-16.0); Lymphocytes Percent Auto 15.9 % (20-44); Mean Corpuscular HGB Conc 34 gm/dL (32-36); Mean Corpuscular Hemoglobin 39 pg (26-34); Mean Corpuscular Volume 115 fL (80-100); Monocytes Percent Auto 10.6 % (0.0-11.0); Neutrophils Percent Auto 69.7 % (42.0-72.0); Platelet Count* 165 K/uL (140-440); RDW Coefficient of Variation % 12.6 % (11.5-15.5); Red Blood Count 3.68 m/uL (4.00-5.20); White Blood Count* 4.16 K/uL (4.50-11.00)
[2022-06-20 13:53] LABS: Albumin* 4.4 g/dL (3.3-5.0); Chloride* 102 mmol/L (96-114); Sodium* 140 mmol/L (135-149)
[2022-06-20 13:54] LABS: Potassium* 3.4 mmol/L (3.6-5.1)
[2022-06-20 13:55] LABS: Slide Review Reflex No
[2022-06-20 13:56] LABS: Alanine Aminotransferase* 55 U/L (4-35); Alkaline Phosphatase* 86 U/L (40-150); Aspartate Amino Transferase* 88 U/L (12-35); Bilirubin Total* 0.8 mg/dL (0.1-1.5); Blood Urea Nitrogen* 11 mg/dL (7-30); Calcium* 8.6 mg/dL (8.4-10.6); Carbon Dioxide* 29 mmol/L (20-32); Creatinine* 0.7 mg/dL (0.5-1.5); Estimated Glomerular Filt Rate 103 ml/min; Glucose* 123 mg/dL (60-115); Total Protein* 8.2 g/dL (6.0-8.3)
[2022-06-23 16:27] LABS: Cortisol, Serum 18.3 ug/dL
[2022-07-11 14:22] VITALS: BP 130/84; PULSE 77; RESP 18; TEMP 36.4; O2SAT 92
[2022-07-11 14:22] LABS: Basophils Absolute Auto 0.02 K/uL (0.00-0.30); Basophils Percent Auto 0.4 % (0.0-3.0); Eosinophils Absolute Auto 0.06 K/uL (0.00-0.50); Eosinophils Percent Auto 1.2 % (0.0-7.0); Hematocrit 42.2 % (33.0-51.0); Immature Granulocytes Abs Auto 0.01 K/uL (0.00-0.30); Immature Granulocytes Pct Auto 0.2 %; Lymphocytes Percent Auto 14.3 % (20-44); Mean Corpuscular HGB Conc 33 gm/dL (32-36); Mean Corpuscular Hemoglobin 38 pg (26-34); Mean Corpuscular Volume 115 fL (80-100); Monocytes Percent Auto 10.8 % (0.0-11.0); Neutrophils Percent Auto 73.1 % (42.0-72.0); Platelet Count* 167 K/uL (140-440); RDW Coefficient of Variation % 13.5 % (11.5-15.5); Red Blood Count 3.66 m/uL (4.00-5.20)
[2022-07-11 14:25] LABS: Slide Review Reflex No
[2022-07-11 14:36] LABS: Albumin* 4.3 g/dL (3.3-5.0); Chloride* 102 mmol/L (96-114); Sodium* 140 mmol/L (135-149)
[2022-07-11 14:37] LABS: Potassium* 3.4 mmol/L (3.6-5.1)
[2022-07-11 14:39] LABS: Alkaline Phosphatase* 103 U/L (40-150); Aspartate Amino Transferase* 106 U/L (12-35); Bilirubin Total* 0.7 mg/dL (0.1-1.5); Blood Urea Nitrogen* 7 mg/dL (7-30); Carbon Dioxide* 29 mmol/L (20-32); Creatinine* 0.7 mg/dL (0.5-1.5); Estimated Glomerular Filt Rate 103 ml/min; Total Protein* 8.2 g/dL (6.0-8.3)
[2022-07-11 14:40] LABS: Alanine Aminotransferase* 60 U/L (4-35); Calcium* 8.5 mg/dL (8.4-10.6); Glucose* 123 mg/dL (60-115); Magnesium* 1.6 mg/dL (1.5-2.6)
[2022-07-11] MEDS: SODIUM CHLORIDE 0.9 % (FLUSH) 10 ML SYRINGE IVF (16:07)
[2022-07-11] MEDS: 0.9 % SODIUM CHLORIDE 250 ml IV (16:07)
[2022-07-11] MEDS: HEPARIN 500 UNIT/5 ML SYRINGE IVF (16:07)
[2022-07-14 12:22] LABS: Cortisol, Serum 22.3 ug/dL
[2022-08-02 12:36] VITALS: BP 110/73; PULSE 79; RESP 16; TEMP 36.4; O2SAT 93
[2022-08-02 12:50] LABS: Basophils Percent Auto 0.8 % (0.0-3.0); Hematocrit 41.9 % (33.0-51.0); Lymphocytes Percent Auto 14.7 % (20-44); Mean Corpuscular HGB Conc 33 gm/dL (32-36); Mean Corpuscular Hemoglobin 39 pg (26-34); Mean Corpuscular Volume 115 fL (80-100); Monocytes Percent Auto 9.6 % (0.0-11.0); Neutrophils Percent Auto 72.9 % (42.0-72.0); Platelet Count* 156 K/uL (140-440); RDW Coefficient of Variation % 13.9 % (11.5-15.5); Red Blood Count 3.64 m/uL (4.00-5.20); White Blood Count* 3.94 K/uL (4.50-11.00)
[2022-08-02 12:51] LABS: Slide Review Reflex No
[2022-08-02 13:12] LABS: Albumin* 4.6 g/dL (3.3-5.0); Chloride* 102 mmol/L (96-114); Sodium* 141 mmol/L (135-149)
[2022-08-02 13:13] LABS: Potassium* 3.8 mmol/L (3.6-5.1)
[2022-08-02 13:15] LABS: Alkaline Phosphatase* 97 U/L (40-150); Aspartate Amino Transferase* 92 U/L (12-35); Bilirubin Total* 0.9 mg/dL (0.1-1.5); Blood Urea Nitrogen* 10 mg/dL (7-30); Calcium* 9.1 mg/dL (8.4-10.6); Carbon Dioxide* 23 mmol/L (20-32); Creatinine* 0.6 mg/dL (0.5-1.5); Estimated Glomerular Filt Rate 107 ml/min; Glucose* 113 mg/dL (60-115); Total Protein* 8.2 g/dL (6.0-8.3)
[2022-08-02 13:16] LABS: Alanine Aminotransferase* 43 U/L (4-35); Magnesium* 1.5 mg/dL (1.5-2.6)
[2022-08-02] MEDS: ALTEPLASE 2 MG INJ IVF (13:17)
[2022-08-02] MEDS: SODIUM CHLORIDE 0.9 % (FLUSH) 10 ML SYRINGE IVF (15:28)
[2022-08-02] MEDS: HEPARIN 500 UNIT/5 ML SYRINGE IVF (15:28)
--- NOTE | 2022-08-02 15:35 | ONC.NURNOTE ---
Addendum entered by Shalini Gong RN 08/05/22 15:23: left message for pt stating that Radiology should be calling her to schedule dye study. Original Note: Pt here for tecentriq. Port accessed and unable to obtain blood return. Cath shanell instill for 120 min without blood return. Peripheral IV started to infuse Tecentriq. Client Coordinator will talk to provider to obtain order for dye study.
[2022-08-03 21:59] LABS: Cortisol, Serum 17.3 ug/dL
[2022-08-22 14:27] LABS: Albumin* 4.6 g/dL (3.3-5.0); Chloride* 100 mmol/L (96-114)
[2022-08-22 14:28] LABS: Potassium* 3.7 mmol/L (3.6-5.1); Sodium* 138 mmol/L (135-149)
[2022-08-22 14:30] LABS: Aspartate Amino Transferase* 108 U/L (12-35); Bilirubin Total* 1.3 mg/dL (0.1-1.5); Carbon Dioxide* 27 mmol/L (20-32); Creatinine* 0.6 mg/dL (0.5-1.5); Estimated Glomerular Filt Rate 107 ml/min; Total Protein* 8.3 g/dL (6.0-8.3)
[2022-08-22 14:31] LABS: Alanine Aminotransferase* 53 U/L (4-35); Alkaline Phosphatase* 108 U/L (40-150); Blood Urea Nitrogen* 10 mg/dL (7-30); Calcium* 9.2 mg/dL (8.4-10.6); Glucose* 139 mg/dL (60-115); Hematocrit 42.3 % (33.0-51.0); Mean Corpuscular Hemoglobin 38 pg (26-34); Mean Corpuscular Volume 115 fL (80-100); Red Blood Count 3.67 m/uL (4.00-5.20); White Blood Count* 6.02 K/uL (4.50-11.00)
[2022-08-22 14:33] LABS: Mean Corpuscular HGB Conc 33 gm/dL (32-36); Platelet Count* 161 K/uL (140-440)
[2022-08-22 14:39] LABS: Basophils Percent Auto 0.5 % (0.0-3.0); Eosinophils Percent Auto 1.5 % (0.0-7.0); Immature Granulocytes Pct Auto 1.2 %; Monocytes Percent Auto 9.1 % (0.0-11.0); Neutrophils Percent Auto 75.7 % (42.0-72.0); RDW Coefficient of Variation % 13.4 % (11.5-15.5); Slide Review Reflex No
[2022-08-22 14:45] VITALS: BP 119/75; PULSE 77; RESP 18; TEMP 36.3; O2SAT 93
[2022-08-24 07:14] LABS: Magnesium* 1.4 mg/dL (1.5-2.6)
[2022-08-24 15:55] LABS: Cortisol, Serum 4.6 ug/dL
[2022-09-12 16:22] LABS: Albumin* 4.6 g/dL (3.3-5.0); Chloride* 99 mmol/L (96-114)
[2022-09-12 16:23] LABS: Potassium* 3.4 mmol/L (3.6-5.1); Sodium* 139 mmol/L (135-149)
[2022-09-12 16:25] LABS: Aspartate Amino Transferase* 84 U/L (12-35); Bilirubin Total* 1.3 mg/dL (0.1-1.5); Carbon Dioxide* 32 mmol/L (20-32); Creatinine* 0.7 mg/dL (0.5-1.5); Est. Creatinine Clearance* 72.66; Estimated Glomerular Filt Rate 103 ml/min; Total Protein* 8.4 g/dL (6.0-8.3)
[2022-09-12 16:26] LABS: Alanine Aminotransferase* 49 U/L (4-35); Alkaline Phosphatase* 94 U/L (40-150); Blood Urea Nitrogen* 10 mg/dL (7-30); Calcium* 9.3 mg/dL (8.4-10.6); Glucose* 138 mg/dL (60-115)
[2022-09-12 17:16] LABS: Basophils Absolute Auto 0.02 K/uL (0.00-0.30); Basophils Percent Auto 0.4 % (0.0-3.0); Eosinophils Absolute Auto 0.06 K/uL (0.00-0.50); Eosinophils Percent Auto 1.2 % (0.0-7.0); Hematocrit 40.7 % (33.0-51.0); Hemoglobin* 13.7 gm/dL (12.0-16.0); Immature Granulocytes Abs Auto 0.01 K/uL (0.00-0.30); Immature Granulocytes Pct Auto 0.2 %; Lymphocytes Percent Auto 8.2 % (20-44); Mean Corpuscular HGB Conc 34 gm/dL (32-36); Mean Corpuscular Hemoglobin 39 pg (26-34); Mean Corpuscular Volume 116 fL (80-100); Monocytes Percent Auto 7.2 % (0.0-11.0); Neutrophils Percent Auto 82.8 % (42.0-72.0); Platelet Count* 147 K/uL (140-440); RDW Coefficient of Variation % 13.8 % (11.5-15.5); Red Blood Count 3.52 m/uL (4.00-5.20); White Blood Count* 4.97 K/uL (4.50-11.00)
[2022-09-12 17:18] LABS: Slide Review Reflex No
[2022-09-13 13:25] VITALS: BP 131/77; PULSE 83; RESP 18; TEMP 36.7; O2SAT 92
[2022-09-14 19:03] LABS: Cortisol, Serum 21.4 ug/dL
[2022-10-02 15:18] LABS: Basophils Absolute Auto 0.04 K/uL (0.00-0.30); Basophils Percent Auto 0.7 % (0.0-3.0); Eosinophils Absolute Auto 0.07 K/uL (0.00-0.50); Eosinophils Percent Auto 1.2 % (0.0-7.0); Hematocrit 41.3 % (33.0-51.0); Hemoglobin* 13.9 gm/dL (12.0-16.0); Immature Granulocytes Abs Auto 0.04 K/uL (0.00-0.30); Immature Granulocytes Pct Auto 0.7 %; Lymphocytes Percent Auto 10.6 % (20-44); Mean Corpuscular HGB Conc 34 gm/dL (32-36); Mean Corpuscular Hemoglobin 39 pg (26-34); Mean Corpuscular Volume 116 fL (80-100); Monocytes Percent Auto 8.3 % (0.0-11.0); Neutrophils Percent Auto 78.5 % (42.0-72.0); Platelet Count* 148 K/uL (140-440); RDW Coefficient of Variation % 13.6 % (11.5-15.5); Red Blood Count 3.55 m/uL (4.00-5.20); White Blood Count* 5.78 K/uL (4.50-11.00)
[2022-10-02 15:26] LABS: Slide Review Reflex No
[2022-10-02 15:34] LABS: Albumin* 4.5 g/dL (3.3-5.0); Chloride* 98 mmol/L (96-114); Sodium* 136 mmol/L (135-149)
[2022-10-02 15:36] LABS: Creatinine* 0.6 mg/dL (0.5-1.5); Est. Creatinine Clearance* 84.78; Estimated Glomerular Filt Rate 107 ml/min
[2022-10-02 15:37] LABS: Alanine Aminotransferase* 35 U/L (4-35); Alkaline Phosphatase* 89 U/L (40-150); Aspartate Amino Transferase* 64 U/L (12-35); Bilirubin Total* 1.3 mg/dL (0.1-1.5); Blood Urea Nitrogen* 13 mg/dL (7-30); Calcium* 8.9 mg/dL (8.4-10.6); Carbon Dioxide* 27 mmol/L (20-32); Glucose* 135 mg/dL (60-115); Total Protein* 8.3 g/dL (6.0-8.3)
[2022-10-02 16:36] LABS: Potassium* 3.5 mmol/L (3.6-5.1)
[2022-10-03] MEDS: ALTEPLASE 2 MG INJ IVF (15:24)
[2022-10-03] MEDS: SODIUM CHLORIDE 0.9 % (FLUSH) 10 ML SYRINGE IVF (15:47)
--- NOTE | 2022-10-03 16:36 | ONC.NURNOTE ---
no blood return from [facility] until after catflow placed for 45 min. good blood return after catflow .
[2022-10-23 15:56] LABS: Basophils Absolute Auto 0.02 K/uL (0.00-0.30); Basophils Percent Auto 0.3 % (0.0-3.0); Eosinophils Percent Auto 1.6 % (0.0-7.0); Hematocrit 40.4 % (33.0-51.0); Hemoglobin* 13.7 gm/dL (12.0-16.0); Immature Granulocytes Abs Auto 0.01 K/uL (0.00-0.30); Immature Granulocytes Pct Auto 0.2 %; Lymphocytes Percent Auto 10.3 % (20-44); Mean Corpuscular HGB Conc 34 gm/dL (32-36); Mean Corpuscular Hemoglobin 40 pg (26-34); Mean Corpuscular Volume 117 fL (80-100); Monocytes Percent Auto 7.4 % (0.0-11.0); Neutrophils Percent Auto 80.2 % (42.0-72.0); Platelet Count* 165 K/uL (140-440); RDW Coefficient of Variation % 13.7 % (11.5-15.5); Red Blood Count 3.44 m/uL (4.00-5.20)
[2022-10-23 16:14] LABS: Albumin* 4.4 g/dL (3.3-5.0)
[2022-10-23 16:15] LABS: Chloride* 103 mmol/L (96-114); Potassium* 3.4 mmol/L (3.6-5.1); Sodium* 139 mmol/L (135-149)
[2022-10-23 16:17] LABS: Aspartate Amino Transferase* 130 U/L (12-35); Bilirubin Total* 0.8 mg/dL (0.1-1.5); Carbon Dioxide* 26 mmol/L (20-32); Creatinine* 0.7 mg/dL (0.5-1.5); Est. Creatinine Clearance* 72.66; Estimated Glomerular Filt Rate 103 ml/min
[2022-10-23 16:18] LABS: Alanine Aminotransferase* 50 U/L (4-35); Alkaline Phosphatase* 98 U/L (40-150); Blood Urea Nitrogen* 7 mg/dL (7-30); Calcium* 8.9 mg/dL (8.4-10.6); Glucose* 125 mg/dL (60-115); Total Protein* 8.3 g/dL (6.0-8.3)
[2022-10-23 16:25] LABS: Slide Review Reflex No
--- NOTE | 2022-10-24 13:53 | ONC.NURNOTE ---
Addendum entered by Fabiana Darling RN 10/24/22 14:01: potassium 3.4 today Original Note: Pt's AST 130. Left message with pt to hold treatment today and call [facility] back. called 2 more times and left a message. Per Roxy Bailon APRN hold treatment today recheck LFT, Mag, K next friday or friday. Ask Jackie if she has been feeling ill. Has she been taking Tylenol? Increase in alcohol intake? increase Mag to bid x2 days. Increase potassium intake by high potassium foods. If she would like a rx for potassium let Roxy know. Let Roxy know if Jackie has been feeling ill.
--- NOTE | 2022-10-24 15:44 | ONC.NURNOTE ---
Jackie called back. very receptive. she in going to decrease her alcohol intake due to elevated LFT. and drink more water. She is going to increase her potassium in food choices like patatoes and bananas. She will increase her mag to BIDx 2 days. She will be in on 1499 to recheck LFT, Mag. K.
[2022-10-25 15:33] LABS: Cortisol, Serum 21.6 ug/dL
[2022-10-29 16:30] LABS: Albumin* 4.7 g/dL (3.3-5.0); Potassium* 4.2 mmol/L (3.6-5.1)
[2022-10-29 16:33] LABS: Alkaline Phosphatase* 107 U/L (40-150); Aspartate Amino Transferase* 89 U/L (12-35); Bilirubin Direct* 0.3 mg/dL (0.0-0.5); Bilirubin Total* 1.2 mg/dL (0.1-1.5); Magnesium* 1.7 mg/dL (1.5-2.6)
[2022-10-29 16:34] LABS: Alanine Aminotransferase* 44 U/L (4-35)
== END 2022-10-29 23:59 | disposition home or self-care (01) ==
LOC: CCIC 15:55
PROVIDERS: Clinical Nurse Specialist; PCP Family Medicine; Referring Provider Family Medicine; Visit Provider Internal Medicine Hematology & Oncology
DX: C34.91 Malignant neoplasm of unspecified part of right bronchus or lung (principal)
CPT/HCPCS: 36415; 36591; 80053; 80076; 82533; 83735; 84132; 84443; 85025; 96376; 96413; 99212; 99213; 99214; 99215; J1642; J2997; J7050; J9022

== ENCOUNTER 2023-01-30 12:59 | Outpatient (CLI) | payer BC, SELFPAY ==
--- NOTE | 2023-01-30 13:15 | PE_ITS ---
[facility] [address] [facility] [address] Phone:?[phone] Fax:?[phone] Referring Physician Information: Viridiana Lockwood M.D. [address] [facility] [address] Phone:?[phone] Fax:?[phone] Patient:Edgar Salas D.O.B:?1965 Sex:?Female Phone:?[phone] [facility] MRN:?[id number] Exam Date:?01/30/2023 EXAM: PET/CT EYES TO THIGHS, CANCER RESTAGING CLINICAL INFORMATION: Lung cancer (SCLC of right lung), restaging. TECHNICAL INFORMATION: Helical acquisition of data was obtained from the orbits to the upper thighs with reconstruction of 3.75 mm thick images at 3.[address] data was used for attenuation correction. PET scanning was performed through the same anatomic range 60 minutes following administration of 11.84 mCi of 18-FDG delivered intravenously. The patient's glucose at the time of the injection was 124 mg/dL. PET, CT and PET/CT fusion images are interpreted using a computer viewing workstation. PET, CT and PET/CT fusion images were archived and saved in the patient's permanent medical record. COMPARISON: CT CAP from 09/27/2022. INTERPRETATION: Head and Neck: There are no abnormal hypermetabolic foci within the head or neck. There is physiologic uptake in the intracranial soft tissues. Chest: Left chest port catheter terminates at the cavoatrial junction. As seen on recent CT, there is poorly circumscribed pulmonary opacity in the right upper lobe and azygoesophageal recess; there is modest associated FDG uptake (SUVmax = 3.16), suggesting a benign etiology (e.g., radiation fibrosis). No christopher viable residua/recurrence within the chest. No new or enlarging pulmonary opacities since the prior CT. Trace right pleural fluid. No intrathoracic lymphadenopathy in terms of size, morphology, or FDG uptake. Background mediastinal blood pool uptake has a maximum SUV of 3.26. Abdomen and Pelvis: There are no abnormal hypermetabolic foci within the abdomen or pelvis. Background hepatic parenchymal uptake has a maximum SUV of 4.07. There is physiologic excretion of radiotracer in the urine and bowel. No abdominopelvic lymphadenopathy in terms of size, morphology, or metabolic rate. There is colonic diverticulosis without evidence of diverticulitis. Skeleton, Musculature, and Integument: No abnormal hypermetabolic foci within the skeleton. No christopher osteoblastic or osteolytic disease. CONCLUSION: There is only modest FDG uptake corresponding to infiltrative soft tissue in the right lung/hilum, consistent with benign treatment-related change (e.g., radiation pneumonitis/fibrosis). No viable residua/recurrence identified. No jorge or distant metastasis detected. Electronically signed on 01/31/2023 12:14:00 PM by Eduar Lyle M.D.
== END 2023-01-30 13:00 | disposition home or self-care (01) ==
PROVIDERS: PCP Family Medicine; Visit Provider Internal Medicine Hematology & Oncology
DX: C34.01 Malignant neoplasm of right main bronchus; C79.31 Secondary malignant neoplasm of brain; Z51.12 Encounter for antineoplastic immunotherapy
CPT/HCPCS: 78815; A9552

== ENCOUNTER 2023-03-27 15:00 | Outpatient (RCR) | payer BC, SELFPAY ==
[2022-10-31 15:10] VITALS: BP 117/69; PULSE 82; RESP 18; TEMP 36.4; O2SAT 92
--- NOTE | 2022-10-31 15:40 | ONC.NURNOTE ---
Labs on 10/29/22 reviewed by Roxy and pt okay for treatment. Pt called today to come in for her treatment, however, PA on 10/28/22. Rod Puller initiated PA on tecentriq and will call pt to schedule once approved. Pt verbalized understanding of plan of care.
--- NOTE | 2022-10-31 16:50 | URNOTE ---
Addendum entered by Erinn Brito RN 03/27/23 14:27: Pt has new insurance as of 03/24/2023. Will need new PA when she resumes treatment. Original Note: Request received for authorization for atezolizumab (Tecentriq) ([id number]). Medicaid as primary insurance. Per [facility] Atezolizumab 1200 mg has been approved for 1080 units (9 visits) from 11/01/2022 to 04/30/2023. Authorization #[id number].
[2022-11-05 11:38] VITALS: BP 115/76; PULSE 82; RESP 18; TEMP 36.8; O2SAT 90
[2022-11-05 11:54] LABS: Basophils Percent Auto 0.7 % (0.0-3.0); Eosinophils Percent Auto 2.1 % (0.0-7.0); Hematocrit 39.6 % (33.0-51.0); Hemoglobin* 13.3 gm/dL (12.0-16.0); Immature Granulocytes Pct Auto 0.2 %; Lymphocytes Percent Auto 17.5 % (20-44); Mean Corpuscular HGB Conc 34 gm/dL (32-36); Mean Corpuscular Hemoglobin 40 pg (26-34); Mean Corpuscular Volume 120 fL (80-100); Monocytes Percent Auto 10.7 % (0.0-11.0); Neutrophils Percent Auto 68.8 % (42.0-72.0); Platelet Count* 163 K/uL (140-440); RDW Coefficient of Variation % 13.9 % (11.5-15.5); Red Blood Count 3.31 m/uL (4.00-5.20); White Blood Count* 4.39 K/uL (4.50-11.00)
[2022-11-05 11:56] LABS: Slide Review Reflex No
[2022-11-05] MEDS: 0.9 % SODIUM CHLORIDE 250 ml IV (12:30)
[2022-11-05] MEDS: SODIUM CHLORIDE 0.9 % (FLUSH) 10 ML SYRINGE IVF (13:00)
[2022-11-05] MEDS: HEPARIN 500 UNIT/5 ML SYRINGE IVF (13:00)
[2022-11-26 16:14] LABS: Basophils Absolute Auto 0.03 K/uL (0.00-0.30); Basophils Percent Auto 0.4 % (0.0-3.0); Eosinophils Absolute Auto 0.08 K/uL (0.00-0.50); Eosinophils Percent Auto 1.1 % (0.0-7.0); Hematocrit 43.2 % (33.0-51.0); Hemoglobin* 14.6 gm/dL (12.0-16.0); Immature Granulocytes Abs Auto 0.01 K/uL (0.00-0.30); Immature Granulocytes Pct Auto 0.1 %; Lymphocytes Percent Auto 9.1 % (20-44); Mean Corpuscular HGB Conc 34 gm/dL (32-36); Mean Corpuscular Hemoglobin 39 pg (26-34); Mean Corpuscular Volume 116 fL (80-100); Monocytes Percent Auto 7.6 % (0.0-11.0); Neutrophils Percent Auto 81.7 % (42.0-72.0); Platelet Count* 156 K/uL (140-440); RDW Coefficient of Variation % 12.8 % (11.5-15.5); Red Blood Count 3.71 m/uL (4.00-5.20); White Blood Count* 7.33 K/uL (4.50-11.00)
[2022-11-26 16:21] LABS: Slide Review Reflex No
[2022-11-26 16:28] LABS: Albumin* 4.7 g/dL (3.3-5.0); Chloride* 100 mmol/L (96-114); Potassium* 4.3 mmol/L (3.6-5.1); Sodium* 140 mmol/L (135-149)
[2022-11-26 16:30] LABS: Creatinine* 0.6 mg/dL (0.5-1.5); Estimated Glomerular Filt Rate 107 ml/min
[2022-11-26 16:31] LABS: Alanine Aminotransferase* 38 U/L (4-35); Alkaline Phosphatase* 93 U/L (40-150); Anion Gap 11 mEq/L (7-15); Aspartate Amino Transferase* 80 U/L (12-35); Blood Urea Nitrogen* 11 mg/dL (7-30); Calcium* 10.2 mg/dL (8.4-10.6); Carbon Dioxide* 29 mmol/L (20-32); Glucose* 138 mg/dL (60-115); Total Protein* 8.9 g/dL (6.0-8.3)
[2022-11-27 15:00] VITALS: BP 122/77; PULSE 887; RESP 16; TEMP 35.7; O2SAT 94
[2022-11-27] MEDS: SODIUM CHLORIDE 0.9 % (FLUSH) 10 ML SYRINGE IVF (16:07)
[2022-11-27] MEDS: 0.9 % SODIUM CHLORIDE 250 ml IV (16:07)
[2022-11-27] MEDS: HEPARIN 500 UNIT/5 ML SYRINGE IVF (16:07)
[2022-11-28 20:17] LABS: Cortisol, Serum 23.6 ug/dL
[2022-12-17 15:50] LABS: Basophils Absolute Auto 0.02 K/uL (0.00-0.30); Basophils Percent Auto 0.3 % (0.0-3.0); Eosinophils Percent Auto 1.6 % (0.0-7.0); Hematocrit 41.4 % (33.0-51.0); Hemoglobin* 14.2 gm/dL (12.0-16.0); Immature Granulocytes Abs Auto 0.02 K/uL (0.00-0.30); Immature Granulocytes Pct Auto 0.3 %; Lymphocytes Percent Auto 11.3 % (20-44); Mean Corpuscular HGB Conc 34 gm/dL (32-36); Mean Corpuscular Hemoglobin 40 pg (26-34); Mean Corpuscular Volume 116 fL (80-100); Monocytes Percent Auto 9.9 % (0.0-11.0); Neutrophils Percent Auto 76.6 % (42.0-72.0); Platelet Count* 157 K/uL (140-440); Red Blood Count 3.57 m/uL (4.00-5.20); White Blood Count* 6.26 K/uL (4.50-11.00)
[2022-12-17 16:09] LABS: Slide Review Reflex No
[2022-12-17 16:26] LABS: Albumin* 4.6 g/dL (3.3-5.0); Chloride* 101 mmol/L (96-114); Potassium* 3.6 mmol/L (3.6-5.1); Sodium* 140 mmol/L (135-149)
[2022-12-17 16:28] LABS: Creatinine* 0.6 mg/dL (0.5-1.5)
[2022-12-17 16:29] LABS: Alanine Aminotransferase* 43 U/L (4-35); Alkaline Phosphatase* 93 U/L (40-150); Anion Gap 11 mEq/L (7-15); Aspartate Amino Transferase* 103 U/L (12-35); Blood Urea Nitrogen* 14 mg/dL (7-30); Carbon Dioxide* 28 mmol/L (20-32); Estimated Glomerular Filt Rate 106 ml/min; Glucose* 119 mg/dL (60-115); Total Protein* 8.9 g/dL (6.0-8.3)
[2022-12-17 16:30] LABS: Calcium* 9.7 mg/dL (8.4-10.6); Magnesium* 1.4 mg/dL (1.5-2.6)
--- NOTE | 2022-12-19 10:06 | ONC.NURNOTE ---
Labs reviewed by Dr. Lockwood. Per Dr. Lockwood, treatment to be held for 1 week. Pt needs to be educated on decreasing tylenol and alcohol intake. Pt called back today and short story writer informed pt of Dr. Lockwood's recommendation. Pt states she has been taking a lot of tylenol due to kenneth tomatoes and her back has been hurting. Pt verbalized understanding of plan of care.
[2022-12-20 11:00] LABS: Cortisol, Serum 17.9 ug/dL
[2022-12-24 14:50] LABS: Albumin* 4.4 g/dL (3.3-5.0); Chloride* 98 mmol/L (96-114); Potassium* 3.2 mmol/L (3.6-5.1); Sodium* 138 mmol/L (135-149)
[2022-12-24 14:52] LABS: Anion Gap 14 mEq/L (7-15); Aspartate Amino Transferase* 61 U/L (12-35); Bilirubin Total* 1.4 mg/dL (0.1-1.5); Carbon Dioxide* 26 mmol/L (20-32)
[2022-12-24 14:53] LABS: Alanine Aminotransferase* 32 U/L (4-35); Alkaline Phosphatase* 98 U/L (40-150); Blood Urea Nitrogen* 14 mg/dL (7-30); Calcium* 9.2 mg/dL (8.4-10.6); Glucose* 131 mg/dL (60-115); Total Protein* 8.2 g/dL (6.0-8.3)
[2022-12-24 15:39] LABS: Creatinine* 0.6 mg/dL (0.5-1.5); Estimated Glomerular Filt Rate 106 ml/min
--- NOTE | 2022-12-24 16:08 | ONC.NURNOTE ---
Addendum entered by Shalini Gong RN 12/25/22 10:05: Pt's labs reviewed by Dr. Lockwood this am. Message left on pt's phone that she is okay to be treated. Mandie will be place potassium if pt not already taking. Instructed pt to call [facility] or can address later today at her appt. Original Note: K+ 3.2. Roxy Bailon APRN aware. Pt states no diarrhea. She states took alot of Ibuprofen/tylenol on empty stomach last week while kenneth. stoped talking them and feels better. no black or tarry stools. states will have baked patato toight and encouraged banana. Incidently Shalini GÓMEZ left a message with pt and also Dr. Lockwood to review tomorrow before treatment.
[2022-12-25 13:45] VITALS: BP 106/75; PULSE 84; RESP 16; TEMP 35.9; O2SAT 90
[2022-12-25] MEDS: SODIUM CHLORIDE 0.9 % (FLUSH) 10 ML SYRINGE IVF ×2 (14:25→15:20)
[2022-12-25] MEDS: HEPARIN 500 UNIT/5 ML SYRINGE IVF (15:20)
[2023-01-14 15:28] LABS: Basophils Absolute Auto 0.04 K/uL (0.00-0.30); Basophils Percent Auto 0.6 % (0.0-3.0); Eosinophils Absolute Auto 0.11 K/uL (0.00-0.50); Eosinophils Percent Auto 1.7 % (0.0-7.0); Hematocrit 42.2 % (33.0-51.0); Hemoglobin* 14.1 gm/dL (12.0-16.0); Immature Granulocytes Abs Auto 0.01 K/uL (0.00-0.30); Immature Granulocytes Pct Auto 0.2 %; Lymphocytes Percent Auto 11.9 % (20-44); Mean Corpuscular HGB Conc 33 gm/dL (32-36); Mean Corpuscular Hemoglobin 39 pg (26-34); Mean Corpuscular Volume 118 fL (80-100); Monocytes Percent Auto 8.1 % (0.0-11.0); Neutrophils Percent Auto 77.5 % (42.0-72.0); Platelet Count* 172 K/uL (140-440); Red Blood Count 3.59 m/uL (4.00-5.20); White Blood Count* 6.39 K/uL (4.50-11.00)
[2023-01-14 15:34] LABS: Slide Review Reflex No
[2023-01-14 15:53] LABS: Albumin* 4.7 g/dL (3.3-5.0); Chloride* 100 mmol/L (96-114); Sodium* 137 mmol/L (135-149)
[2023-01-14 15:54] LABS: Potassium* 3.7 mmol/L (3.6-5.1)
[2023-01-14 15:56] LABS: Alanine Aminotransferase* 39 U/L (4-35); Alkaline Phosphatase* 98 U/L (40-150); Anion Gap 10 mEq/L (7-15); Aspartate Amino Transferase* 106 U/L (12-35); Bilirubin Total* 1.2 mg/dL (0.1-1.5); Blood Urea Nitrogen* 12 mg/dL (7-30); Carbon Dioxide* 27 mmol/L (20-32); Creatinine* 0.7 mg/dL (0.5-1.5); Estimated Glomerular Filt Rate 102 ml/min; Glucose* 128 mg/dL (60-115); Total Protein* 8.6 g/dL (6.0-8.3)
[2023-01-14 15:57] LABS: Calcium* 9.4 mg/dL (8.4-10.6)
--- NOTE | 2023-01-15 14:52 | PC.NURSE ---
Treatment labs done yesterday, 01/14/2023. RN reviewed labs this afternoon and noted LFT elevated. Reviewed with Dr. Lockwood. Treatment held today. Will have pt come in for labs next week and possibly treatment. Pt called and updated. Of note, pt has imaging and MD visit early January.
[2023-01-17 06:06] LABS: Cortisol, Serum 25.7 ug/dL
[2023-01-21 15:21] LABS: Albumin* 4.8 g/dL (3.3-5.0)
[2023-01-21 15:24] LABS: Alanine Aminotransferase* 36 U/L (4-35); Alkaline Phosphatase* 96 U/L (40-150); Aspartate Amino Transferase* 88 U/L (12-35); Bilirubin Direct* 0.2 mg/dL (0.0-0.5); Bilirubin Total* 1.4 mg/dL (0.1-1.5); Total Protein* 8.9 g/dL (6.0-8.3)
--- NOTE | 2023-01-22 12:58 | ONC.NURNOTE ---
Called pt to let her know Dr. Lockwood reviewed her LFT's and it is okay to treat with Tecentriq today. Pt mentioned she thinks she broke her little toe, pt did not go in for an xray. Peoplesoft Analyst did mention to Dr. Lockwood that pt thinks she may have a broken toe and Dr. Lockwood stated still okay to treat.
[2023-01-22 14:57] VITALS: BP 112/71; PULSE 80; RESP 16; TEMP 36.4; O2SAT 90
[2023-01-22] MEDS: SODIUM CHLORIDE 0.9 % (FLUSH) 10 ML SYRINGE IVF (15:28)
[2023-01-22] MEDS: 0.9 % SODIUM CHLORIDE 250 ml IV (15:29)
[2023-01-22] MEDS: HEPARIN 500 UNIT/5 ML SYRINGE IVF (15:29)
[2023-01-31] MEDS: HEPARIN 500 UNIT/5 ML SYRINGE IVF (15:45)
[2023-01-31] MEDS: SODIUM CHLORIDE 0.9 % (FLUSH) 10 ML SYRINGE IVF (15:45)
--- NOTE | 2023-02-12 14:05 | ONC.NURNOTE ---
Addendum entered by Shalini Gong RN 02/12/23 14:14: Pt called back...pt has decided to take a break from Tecentriq as discussed with Mandie last week. Pt scheduled for 3 mo follow up with Dr. Lockwood and scans prior to that appt. Original Note: Late Entry-02/11/23 Radio Program Director left message with pt to call and reschedule or update [facility] on plan. Pt did not show up for lab draw on 02/11/23. Pt was instructed by Dr. Lockwood on 02/05/23 to call [facility] with decision on chemo holiday or continuation.
--- NOTE | 2023-03-25 12:00 | ONC.NURNOTE ---
Patient missed her port flush last week, left message for patient to call and schedule.
[2023-03-27] MEDS: SODIUM CHLORIDE 0.9 % (FLUSH) 10 ML SYRINGE IVF (15:14)
[2023-03-27] MEDS: HEPARIN 500 UNIT/5 ML SYRINGE IVF (15:14)
== END 2023-04-29 23:59 | disposition home or self-care (01) ==
LOC: CCIC 15:00
PROVIDERS: Clinical Nurse Specialist; PCP Family Medicine; Referring Provider Family Medicine; Visit Provider Internal Medicine Hematology & Oncology
DX: C34.91 Malignant neoplasm of unspecified part of right bronchus or lung (principal)
CPT/HCPCS: 36415; 36591; 70553; 80053; 80076; 82533; 83735; 84443; 85025; 96413; 99211; 99212; 99215; A9575; J1642; J7050; J9022

== ENCOUNTER 2023-05-08 16:39 | Outpatient (CLI) | payer BC, SELFPAY ==
--- OUTSIDE RECORDS SUMMARY | 2023-05-08 16:41 | XMS_ITS | Clinical Summary ---
Author Name Unknown Organization [facility] Address [place], [place] [address] Care Team Providers Care Garment Turner Name Role Phone Pranay Almonte MD Primary Care Provider [phone] Allergies Active Allergy Reactions Criticality Noted Date Comments Amoxicillin Rash Low 03/18/2019 Yip Other - Describe In Comment Field,Edema 06/23/2017 Swelling Clavulanic Acid Rash 03/18/2019 Hydromorphone *None-Radiology Only 05/15/2017 Temporary loss of vision. Dill Oil Edema 03/14/2009 Ate dill in soup, had immediate swelling of lips and eyes. Cannot think of anything else in the soup that would have triggered this Hydrochlorothiazide Cough 03/18/2019 Penicillins Diarrhea Medium 03/19/2019 Sulfa (Sulfonamide Antibiotics) 10/13/2007 Medications Medication Sig Dispensed Refills Start Date End Date Status epinephrine 0.3 mg in 0.3 ml (EPIPEN) 0.3 mg/0.3 mL injectionIndicati ons:Allergic reaction inject 0.3 mg by intramuscular route once as needed for anaphylaxis 1 0 03/14/2009 Active ibuprofen (ADVIL) 200 mg tabletIndications :headache disorder,pain Take 2 tablets by mouth every 6 hours. Take scheduled for one week then as needed Indications: HEADACHE DISORDER, PAIN 200 tablet 0 04/05/2010 Active albuterol HFA (PRO-AIR,VENTOLIN ,PROVENTIL) 90 mcg/Actuation inhaler Inhale 2 Puffs by mouth every 4 hours if needed. 1 Inhaler 1 12/26/2010 Active metoprolol tartrate (LOPRESSOR) 25 mg tablet Take 25 mg by mouth 2 times daily. 0 03/03/2017 Active atorvastatin (LIPITOR) 40 mg tabletIndications :hypercholesterol emia Take 80 mg by mouth at bedtime. Indications: high cholesterol 0 05/05/2017 Active fluticasone (FLOVENT HFA) 110 mcg/Actuation inhaler Inhale 1 Puff by mouth 2 times daily. 0 Active escitalopram oxalate (LEXAPRO) 10 mg tablet Take 10 mg by mouth once daily. 0 01/11/2020 Active LORazepam (ATIVAN) 0.5 mg tab TAKE 1-2 TABLETS BY MOUTH EVERY 4 HOURS NEEDED FOR NAUSEA/VOMITING. 0 09/21/2019 Active magnesium oxide (MAG-OX 400) 400 mg tablet take 1 tablet by mouth once daily. if no diarrhea after 3 days, increase to 1 tablet twice daily. 0 07/13/2019 Active prochlorperazine (COMPAZINE) 10 mg tablet take 1 tablet by mouth ever 4-6 hours as needed for nausea/vomiting. 0 04/08/2019 Active Active Problems Problem Noted Date Diagnosed Date Recurrent UTI 11/24/2010 High blood pressure 11/24/2010 Unspecified sleep apnea 11/24/2010 Pericarditis 04/05/2010 Family History Medical History Relation Name Comments Stroke Maternal Grandmother 90 Relation Name Status Comments Maternal Grandmother Social History Tobacco Use Types Packs/Day Years Used Date Smoking Tobacco: Former Cigarettes Smokeless Tobacco: Never Alcohol Use Standard Drinks/Week Comments Yes 0 (1 standard drink = 0.6 oz pur e alcohol) at least one drink per night Sex and Gender Information Value Date Recorded Sex Assigned at Not on file Gender Identity Not on file Sexual Orientation Not on file Obstetrics History Last Filed Vital Signs Vital Sign Reading Time Taken Comments Blood Pressure 113/63 02/09/2020 10:10 AM WOODWIND INSTRUMENT REPAIRER Pulse 77 02/09/2020 10:10 AM WOODWIND INSTRUMENT REPAIRER Temperature 36.8 ??C (98.2 ??F) 02/09/2020 8:50 AM CS T 98.298.2 Respiratory Rate 16 02/09/2020 10:10 AM WOODWIND INSTRUMENT REPAIRER Oxygen Saturation 94% 02/09/2020 10:10 AM WOODWIND INSTRUMENT REPAIRER Inhaled Oxygen Concentration - - Weight 68.5 kg (151 lb) 02/09/2020 7:33 AM WOODWIND INSTRUMENT REPAIRER Height 153.7 cm (5' 0.5) 02/09/2020 7:33 AM WOODWIND INSTRUMENT REPAIRER Body Mass Index 29 02/09/2020 7:33 AM WOODWIND INSTRUMENT REPAIRER Plan of Treatment Health Maintenance Due Date Last Done Comments COVID-19 vaccine series (#1) 06/09/1968 Tdap 12/10/1978 Depression screening for age 12+ 1979 HIV for age 15-65 12/10/1982 BMI (ht and wt on same day) for age 18+ 12/10/1985 Hepatitis C screening for ag e 18-79 12/10/1985 Tetanus booster 1987 Colonoscopy through age 75 12/10/2012 Lipids for age 45-75 12/10/2012 Mammogram for age 45-75 12/10/2012 Pap test for age 21-65 10/14/2017 5, 10/14/2014, 07/11/2004 Zoster (shingles) series for age 50+ (1 of 2) 12/10/2017 Influenza for age 50-64 11/22/2022 Pneumococcal series for age 6-64 Aged Out No longer eligible b ased on patient's age to complete this topic Advance Directives Latest Code Status on File Code Status Date Activated Date Inactivated Comments Full Code 02/09/2020 7:16 AM 02/10/2020 2:33 AM Question Answer Comments Code Status Discussion: Per Existing Order Code Status History Code Status Date Activated Date Inactivated Comments Full Code 03/22/2019 11:41 AM 03/22/2019 5:33 PM Full Code 04/05/2010 11:34 AM 04/05/2010 8:18 PM Care Teams Garment Turner Relationship Specialty Start Date End Date Pranay Almonte MD [address] [place] [address] PCP - General Family Practice 05/12/17
--- NOTE | 2023-05-08 16:45 | CT_ITS ---
[facility] [address] [facility] [address] Phone:?[phone] Fax:?[phone] Referring Physician Information: Viridiana Lockwood M.D. [address] [facility] [address] Phone:?[phone] Fax:?[phone] Patient:Edgar Salas D.O.B:?1965 Sex:?Female Phone:?[phone] [facility] MRN:?[id number] Exam Date:?05/08/2023 EXAM: CT CHEST WITH CONTRAST; CT ABDOMEN AND PELVIS WITH CONTRAST CLINICAL INFORMATION: Lung cancer, restaging. TECHNICAL INFORMATION: The patient was given 3 cups of water containing a total of 50 mL Omnipaque 300 to drink prior to the exam. After IV injection of intravenous contrast (details not provided by pet technologist), axial sections were obtained at 5 mm intervals from the thoracic inlet through the symphysis pubis. Reformations were obtained in the coronal and sagittal planes. No immediate complications were seen. COMPARISON: PET-CT from 01/30/2023, CT CAP from 09/27/2022. INTERPRETATION: Chest: Left chest port catheter terminates at the cavoatrial junction. There are stable, poorly circumscribed pulmonary opacity in the right upper lobe and azygoesophageal recess, consistent with treatment-related changes. No new or enlarging pulmonary nodules or masses. No christopher viable residua/recurrence within the chest. No intrathoracic lymphadenopathy in terms of size or morphology. Heart size is normal; aortic and coronary atherosclerosis redemonstrated; aberrant right subclavian artery noted incidentally. No pericardial or pleural effusion. Abdomen: The liver is diffusely steatotic, without focal abnormality. Cholelithiasis redemonstrated. The bile ducts, pancreas, spleen, adrenal glands, and kidneys are within normal limits. Visualized intestines are unremarkable. No abdominopelvic lymphadenopathy by size criteria. Negative for ascites. There is atherosclerosis of the aorta and its branches without aneurysm. Pelvis: Uterus and adnexa are unremarkable. Urinary bladder is thin-walled, grossly normal. Musculoskeletal: No acute or suspicious bony abnormality. Specifically, no osteoblastic or osteolytic lesions detected. CONCLUSION: Stable exam. Treatment-related changes redemonstrated in the right hemithorax. No christopher viable recurrence. No active jorge/distant metastasis identified within the chest, abdomen, or pelvis. [facility] is committed to minimizing radiation exposure while maintaining high-quality CT images. Technologists adjust the mA and/or kV according to each patient's size to optimize dose. Since we began voluntarily reporting to the [employer]'s Dose Index Registry, our average CT doses have been consistently lower than the national average. Electronically signed on 05/12/2023 9:17:00 AM by Eduar Lyle M.D.
== END 2023-05-08 16:40 | disposition home or self-care (01) ==
LOC: CT 16:39
PROVIDERS: PCP Family Medicine; Visit Provider Internal Medicine Hematology & Oncology
DX: C34.90 Malignant neoplasm of unspecified part of unspecified bronchus or lung (principal); C79.31 Secondary malignant neoplasm of brain
CPT/HCPCS: 71260; 74177; Q9967

== ENCOUNTER 2023-10-07 15:00 | Outpatient (RCR) | payer BC, MEDICAID, SELFPAY ==
--- NOTE | 2023-05-08 17:00 | ONC.NURNOTE ---
Confirmed upcoming appt Ms. Salas follows at our clinic for medical management of lung cancer. She completed CT in preparation for upcoming visit with Dr. Viridiana Lockwood. Sent message through [employer] to confirm with Ms. Salas that her appt was cancelled fo05/14/23 and she was rescheduled for 1430 on 05/20/[address] Lockwood, arrival at 2pm.
--- NOTE | 2023-07-09 14:48 | ONC.NURNOTE ---
Addendum entered and electronically signed by Roxy Bae, COLETTE 07/25/23 16:31: Ms. Salas stopped by today to update us that she is working to reinstate her insurance and hopes to have that accomplished in the next few weeks. She is aware that she is overdue for port flush and asks how much that would cost her to pay out of pocket. She was informed that we would make a request to estimate her cost for that procedure and any other support she might need with patient financial services. Original Note: It was noted that patient has been no show for her port flushes, LMOM to call and schedule this.
[2023-08-28] MEDS: SODIUM CHLORIDE 0.9 % (FLUSH) 10 ML SYRINGE IVF (16:09)
[2023-08-28] MEDS: HEPARIN 500 UNIT/5 ML SYRINGE IVF (16:09)
[2023-08-28 16:12] LABS: Basophils Absolute Auto 0.02 K/uL (0.00-0.30); Basophils Percent Auto 0.3 % (0.0-3.0); Eosinophils Absolute Auto 0.08 K/uL (0.00-0.50); Eosinophils Percent Auto 1.4 % (0.0-7.0); Hemoglobin* 14.2 gm/dL (12.0-16.0); Immature Granulocytes Abs Auto 0.01 K/uL (0.00-0.30); Immature Granulocytes Pct Auto 0.2 %; Lymphocytes Percent Auto 13.3 % (20-44); Mean Corpuscular HGB Conc 33 gm/dL (32-36); Mean Corpuscular Hemoglobin 36 pg (26-34); Mean Corpuscular Volume 109 fL (80-100); Monocytes Percent Auto 7.9 % (0.0-11.0); Neutrophils Percent Auto 76.9 % (42.0-72.0); Platelet Count* 178 K/uL (140-440); RDW Coefficient of Variation % 13.5 % (11.5-15.5); Red Blood Count 3.94 m/uL (4.00-5.20); White Blood Count* 5.72 K/uL (4.50-11.00)
[2023-08-28 16:22] LABS: Slide Review Reflex Yes
[2023-08-28 16:57] LABS: Albumin* 4.8 g/dL (3.3-5.0)
[2023-08-28 16:58] LABS: Chloride* 103 mmol/L (96-114); Potassium* 3.7 mmol/L (3.6-5.1); Sodium* 140 mmol/L (135-149)
[2023-08-28 17:00] LABS: Anion Gap 10 mEq/L (7-15); Aspartate Amino Transferase* 102 U/L (12-35); Bilirubin Total* 1.1 mg/dL (0.1-1.5); Carbon Dioxide* 27 mmol/L (20-32); Creatinine* 0.7 mg/dL (0.5-1.5); Estimated Glomerular Filt Rate 102 ml/min
[2023-08-28 17:01] LABS: Alanine Aminotransferase* 57 U/L (4-35); Alkaline Phosphatase* 90 U/L (40-150); Blood Urea Nitrogen* 12 mg/dL (7-30); Calcium* 9.1 mg/dL (8.4-10.6); Glucose* 118 mg/dL (60-115); Magnesium* 1.6 mg/dL (1.5-2.6); Slide Review Acceptable Review (Acceptable); Total Protein* 8.6 g/dL (6.0-8.3)
--- NOTE | 2023-10-07 09:19 | ONC.NURNOTE ---
Multifocal Button Generator took message off of our voicemail, Jackie stated that she was canceling her appointment today. She has no insurance and is working on getting insured, will call when she when insured.
== END 2023-11-16 23:59 | disposition home or self-care (01) ==
LOC: CCIC 15:00
PROVIDERS: PCP Family Medicine; Referring Provider Family Medicine; Visit Provider Internal Medicine Hematology & Oncology
DX: C34.91 Malignant neoplasm of unspecified part of right bronchus or lung (principal)
CPT/HCPCS: 36415; 36591; 78815; 80053; 83735; 85025; 99211; 99213; 99214; G0463; A9552; J1642

== ENCOUNTER 2023-11-12 15:04 | Outpatient (CLI) | payer MEDICAID, SELFPAY ==
--- OUTSIDE RECORDS SUMMARY | 2023-11-12 15:07 | XMS_ITS | Clinical Summary ---
Author Organization [facility] Address [place], [place] [address] Care Team Providers Care Engine Buildup Mechanic Name Role Phone Pranay Almonte MD Primary Care Provider [phone] Allergies Active Allergy Reactions Criticality Noted Date [...] route once as needed for anaphylaxis 1 PRN 03/14/2009 Active ibuprofen (ADVIL) 200 mg tabletIndications [...] 25 mg by mouth 2 times daily. 03/03/2017 Active atorvastatin (LIPITOR) 40 mg tabletIndications :hypercholesterol emia Take 80 mg by mouth at bedtime. Indications: high cholesterol 05/05/2017 Active fluticasone (FLOVENT HFA) 110 mcg/Actuation inhaler Inhale 1 Puff by mouth 2 times daily. Active escitalopram oxalate (LEXAPRO) 10 mg tablet Take 10 mg by mouth once daily. 01/11/2020 Active LORazepam (ATIVAN) 0.5 mg tab TAKE 1-2 TABLETS BY MOUTH EVERY 4 HOURS NEEDED FOR NAUSEA/VOMITING. 09/21/2019 Active magnesium oxide (MAG-OX 400) 400 mg tablet take 1 tablet by mouth once daily. if no diarrhea after 3 days, increase to 1 tablet twice daily. 07/13/2019 Active prochlorperazine (COMPAZINE) 10 mg tablet take 1 tablet by mouth ever 4-6 hours as needed for nausea/vomiting. 04/08/2019 Active Active Problems Problem Noted Date [...] Comments Blood Pressure 113/63 02/09/2020 10:10 AM SHOT CORE DRILL OPERATOR Pulse 77 02/09/2020 10:10 AM SHOT CORE DRILL OPERATOR Temperature 36.8 ??C (98.2 ??F) 02/09/2020 8:50 AM CS T 98.298.2 Respiratory Rate 16 02/09/2020 10:10 AM SHOT CORE DRILL OPERATOR Oxygen Saturation 94% 02/09/2020 10:10 AM SHOT CORE DRILL OPERATOR Inhaled Oxygen Concentration - - Weight 68.5 kg (151 lb) 02/09/2020 7:33 AM SHOT CORE DRILL OPERATOR Height 153.7 cm (5' 0.5) 02/09/2020 7:33 AM SHOT CORE DRILL OPERATOR Body Mass Index 29 02/09/2020 7:33 AM SHOT CORE DRILL OPERATOR Plan of Treatment Health Maintenance Due Date Last Done Comments Tdap 12/10/1978 Depression screening for age 12+ [...] for age 50+ (1 of 2) 12/10/2017 COVID-19 vaccine series (2022- season) 2022 Influenza for age 50-64 11/23/2023 Pneumococcal series for age 6-64 Aged Out No longer eligible b ased on patient's age to complete this topic Procedures Procedure Name Priority Date/Time Associated Diagnosis Comments BYPRODUCTS EXTRACTOR THIN PREP PAP SCREEN IMAGED Routine 10/14/2014 1:45 PM CDT from Last 3 Months or Most Recently Relevant to Health Maintenance Results * BYPRODUCTS EXTRACTOR THIN PREP PAP SCREEN IMAGED (10/14/2014 1:45 PM CDT) BYPRODUCTS EXTRACTOR CYTOLOGY See Anatomic Pathology case 10/19/2014 8:01 PM CDT [facility] Specimen (specimen) (Cervical/Vagina l) Client Collect / Unknown 10/14/2014 1:45 PM CDT 10/14/2014 7:19 PM CDT Emerita Estevez NP PATHOLOGY/CYTOLOGY [facility] [address] [place] [address], [place] from Last 3 Months or Most Recently Relevant to Health Maintenance Advance Directives * Full Code (Latest Code Status on File) Date Activated Date Inactivated Comments 02/09/2020 7:16 AM 02/10/2020 2:33 AM Question Answer Comments Code Status Discussion: Per Existing Order * Full Code Date Activated Date Inactivated Comments 03/22/2019 11:41 AM 03/22/2019 5:33 PM * Full Code Date Activated Date Inactivated Comments 04/05/2010 11:34 AM 04/05/2010 8:18 PM Care Teams Engine Buildup Mechanic Relationship Specialty Start Date End Date Pranay Almonte MD [address] [place] [address] PCP - General Family Practice 05/12/17
== END 2023-11-12 15:05 | disposition home or self-care (01) ==
PROVIDERS: PCP Family Medicine; Visit Provider Family Medicine
DX: E78.5 Hyperlipidemia, unspecified (principal); I10 Essential (primary) hypertension
CPT/HCPCS: 80053; 80061

== ENCOUNTER 2023-11-20 13:22 | Outpatient (CLI) | payer MEDICAID, SELFPAY ==
--- OUTSIDE RECORDS SUMMARY | 2023-11-20 13:26 | XMS_ITS | Clinical Summary ---
Author Organization [facility] Address [place], [place] [address] Care Team Providers Care Measurement Analyst Name Role Phone Pranay Almonte MD Primary Care Provider [phone] Allergies Active Allergy Reactions Criticality Noted Date [...] Comments Blood Pressure 113/63 02/09/2020 10:10 AM HYDRAULIC AUTO JACK MECHANIC Pulse 77 02/09/2020 10:10 AM HYDRAULIC AUTO JACK MECHANIC Temperature 36.8 ??C (98.2 ??F) 02/09/2020 8:50 AM CS T 98.298.2 Respiratory Rate 16 02/09/2020 10:10 AM HYDRAULIC AUTO JACK MECHANIC Oxygen Saturation 94% 02/09/2020 10:10 AM HYDRAULIC AUTO JACK MECHANIC Inhaled Oxygen Concentration - - Weight 68.5 kg (151 lb) 02/09/2020 7:33 AM HYDRAULIC AUTO JACK MECHANIC Height 153.7 cm (5' 0.5) 02/09/2020 7:33 AM HYDRAULIC AUTO JACK MECHANIC Body Mass Index 29 02/09/2020 7:33 AM HYDRAULIC AUTO JACK MECHANIC Plan of Treatment Health Maintenance Due Date [...] Procedure Name Priority Date/Time Associated Diagnosis Comments SECURITY FLEX UTILITY OFFICER THIN PREP PAP SCREEN IMAGED Routine 10/14/2014 1:45 PM CDT from Last 3 Months or Most Recently Relevant to Health Maintenance Results * SECURITY FLEX UTILITY OFFICER THIN PREP PAP SCREEN IMAGED (10/14/2014 1:45 PM CDT) SECURITY FLEX UTILITY OFFICER CYTOLOGY See Anatomic Pathology case 10/19/2014 8:01 PM CDT [facility] Specimen (specimen) (Cervical/Vagina l) Client Collect / Unknown 10/14/2014 1:45 PM CDT 10/14/2014 7:19 PM CDT Emerita Estevez NP PATHOLOGY/CYTOLOGY [facility] [address] [place] [address], [place] from Last 3 Months or Most [...] 11:34 AM 04/05/2010 8:18 PM Care Teams Measurement Analyst Relationship Specialty Start Date End Date Pranay Almonte MD [address] [place] [address] PCP - General Family Practice 05/12/17
--- NOTE | 2023-11-20 13:30 | PE_ITS ---
[facility] [address] [facility] [address] Phone:?[phone] Fax:?[phone] Referring Physician Information: Viridiana Lockwood M.D. [address] [facility] [address] Phone:?[phone] Fax:?[phone] Patient:Edgar Salas D.O.B:?1965 Sex:?Female Phone:?[phone] [facility] MRN:?[id number] Exam Date:?11/20/2023 EXAM:?PET/CT EYES TO THIGHS, CANCER RESTAGING CLINICAL INFORMATION: Lung cancer restaging TECHNICAL INFORMATION: Helical acquisition of data was obtained from the orbits to the upper thighs with reconstruction of 3.75 mm thick images at 3.[address] data was used for attenuation correction. PET scanning was performed through the same anatomic range 60 minutes following administration of 11.71 mCi of 18-FDG delivered intravenously. The patient's glucose at the time of the injection was 113 mg/dL. PET, CT and PET/CT fusion images are interpreted using a computer viewing workstation. PET, CT and PET/CT fusion images were archived and saved in the patient's permanent medical record. COMPARISON: PET/CT 08/28/2023 and prior exams INTERPRETATION: Head and Neck: There are no abnormal hypermetabolic foci within the head or neck. There is physiologic uptake in the intracranial soft tissues. Chest: Mediastinal blood pool activity with a mean SUV of 2.76. Redemonstrated right upper lobe consolidative opacity with associated volume loss extending to the right perihilar region, measuring up to 1.5 cm in maximal thickness (series 202 image 105), similar to the prior exam. Similar low level radiotracer avidity with SUV max of 3.45. No new or enlarging lymphadenopathy. No suspicious lung nodules. Slightly increased patchy airspace opacities in the left upper and left lower lobes (series 202 image 114, 120, 130). Similar trace right pleural effusion. Left chest wall juan catheter. Redemonstrated aberrant left subclavian artery. Abdomen and Pelvis: Background liver parenchymal uptake with a mean SUV of 3.17. No abnormal hypermetabolic foci within the abdomen or pelvis. There is physiologic excretion of radiotracer in the urine and bowel. Hepatic steatosis. Cholelithiasis. Mild splenomegaly. Aortoiliac atherosclerosis. Skeleton, Musculature, and Integument: New inferior endplate compression deformity of the T5 vertebral body with low level radiotracer avidity and an SUV max of 3.7. No discrete lesion is visualized. No other suspicious osseous findings. CONCLUSION: * Similar right upper lobe/perihilar consolidative opacity with minimal low- level FDG avidity which is favored to reflect posttreatment changes. No definite evidence of residual or recurrent disease. * No lymphadenopathy in the chest, abdomen or pelvis. * New mild inferior endplate compression deformity of the T5 vertebral body with low level FDG avidity. No discrete underlying lesion is visualized. Consider short interval follow-up CT chest in 2-3 months. Alternatively, MRI of the thoracic spine without and with contrast could be considered if there is concern for an underlying lesion. * Patchy airspace opacities in the left upper and lower lobes which are favored to be infectious or inflammatory in nature. Attention on follow-up imaging. * Similar trace right pleural effusion. Electronically signed on 11/24/2023 12:51:00 PM by Bull Sparks D.O
== END 2023-11-20 13:23 | disposition home or self-care (01) ==
PROVIDERS: PCP Family Medicine; Visit Provider Internal Medicine Hematology & Oncology
DX: C34.90 Malignant neoplasm of unspecified part of unspecified bronchus or lung (principal); J90 Pleural effusion, not elsewhere classified; M89.9 Disorder of bone, unspecified
CPT/HCPCS: 36591; 78815; 80053; 84443; 85025; 96374; A9552; J2997

== ENCOUNTER 2024-02-24 15:19 | Outpatient (CLI) | payer BC, SELFPAY ==
--- OUTSIDE RECORDS SUMMARY | 2024-02-24 15:25 | XMS_ITS | Clinical Summary ---
Author Organization [facility] Address [place], [place] [address] Care Team Providers Care Retail Business Analyst Name Role Phone Pranay Almonte MD Primary Care Provider [phone] Allergies Active Allergy Reactions Criticality Noted Date [...] Comments Blood Pressure 113/63 02/09/2020 10:10 AM SHOWPLACE MANAGER Pulse 77 02/09/2020 10:10 AM SHOWPLACE MANAGER Temperature 36.8 C (98.2 F) 02/09/2020 8:50 AM SHOWPLACE MANAGER 98.298.2 Respiratory Rate 16 02/09/2020 10:10 AM SHOWPLACE MANAGER Oxygen Saturation 94% 02/09/2020 10:10 AM SHOWPLACE MANAGER Inhaled Oxygen Concentration - - Weight 68.5 kg (151 lb) 02/09/2020 7:33 AM SHOWPLACE MANAGER Height 153.7 cm (5' 0.5) 02/09/2020 7:33 AM SHOWPLACE MANAGER Body Mass Index 29 02/09/2020 7:33 AM SHOWPLACE MANAGER Plan of Treatment Health Maintenance Due Date [...] (1 of 2) 12/10/2017 COVID-19 vaccine series (2023- season) 2023 Influenza for age 50-64 11/23/2023 Pneumococcal series for age 6-64 Aged Out No longer eligible b ased on patient's age to complete this topic Procedures Procedure Name Priority Date/Time Associated Diagnosis Comments LEVEL VIAL SEALER THIN PREP PAP SCREEN IMAGED Routine 10/14/2014 1:45 PM CDT from Last 3 Months or Most Recently Relevant to Health Maintenance Results * LEVEL VIAL SEALER THIN PREP PAP SCREEN IMAGED (10/14/2014 1:45 PM CDT) LEVEL VIAL SEALER CYTOLOGY See Anatomic Pathology case 10/19/2014 8:01 PM CDT [facility] Specimen (specimen) (Cervical/Vagina l) Client Collect / Unknown 10/14/2014 1:45 PM CDT 10/14/2014 7:19 PM CDT Emerita Estevez NP PATHOLOGY/CYTOLOGY [facility] [address] [place] [address], from Last 3 Months or Most Recently [...] 11:34 AM 04/05/2010 8:18 PM Care Teams Retail Business Analyst Relationship Specialty Start Date End Date Pranay Almonte MD [address] [place] [address] PCP - General Family Practice 05/12/17
--- NOTE | 2024-02-24 15:30 | CRLHL7_ITS ---
For Patients: As a result of the Century Cures Act, medical imaging exams and procedure reports are released immediately into your electronic medical record. You may view this report before your referring provider. If you have questions, please contact your health care provider. Indication: Lung cancer staging Technique: Noncontrast sagittal T1, axial FLAIR, T2 turbo spine echo, and diffusion weighted images. Supplemental post contrast T1 weighted axial and coronal sequences are provided after administration of 15 cc Dotarem gadolinium-based IV contrast. Comparison: MRI 01/31/2023 and 07/29/2022 Findings: Slight decrease in size of a peripherally enhancing mass in the left lateral cerebellum that contains foci of susceptible artifact likely representing hemosiderin deposition or calcifications. There is stable surrounding FLAIR signal hyperintensity in the left cerebellum. Normal parenchymal volume. Few scattered punctate foci of T2 prolongation in the supratentorial white matter are nonspecific. No hydrocephalus. No suspicious extra-axial collection or acute intracranial hemorrhage. Expected intracranial vascular flow voids are preserved. There is no evidence of diffusion restriction to suggest acute ischemia. No suspicious extra-axial collection or acute intracranial hemorrhage. Heterogeneous T2 signal and diffusion restriction the calvarial bone marrow is unchanged and could be secondary to bone marrow reconversion. No discrete osseous lesions. Impression: 1. Slight decrease in size of peripherally enhancing mass in the central left lateral cerebellum with adjacent vasogenic edema compatible with treated metastasis. 2. No new enhancing lesions in the brain parenchyma. 3. Heterogeneous T2 signal and diffusion restriction the calvarial bone marrow is unchanged and could be secondary to bone marrow reconversion. No discrete osseous lesions. Dictated by Critsóbal Dougherty MD @ 02/27/2024 7:28:58 PM (Electronically Signed)
== END 2024-02-24 15:20 | disposition home or self-care (01) ==
LOC: MRI 15:23
PROVIDERS: PCP Family Medicine; Visit Provider Internal Medicine Hematology & Oncology
DX: C34.90 Malignant neoplasm of unspecified part of unspecified bronchus or lung (principal)
CPT/HCPCS: 70553; A9575

== ENCOUNTER 2024-03-11 15:38 | Outpatient (CLI) | payer BC, SELFPAY ==
--- NOTE | 2024-03-11 16:00 | PE_ITS ---
[facility] [address] [facility] [address] Phone:?[phone] Fax:?[phone] Referring Physician Information: Viridiana Lockwood M.D. [address] [facility] [address] Phone:?[phone] Fax:?[phone] Patient:Edgar Salas D.O.B:?1965 Sex:?Female Phone:?[phone] [facility] MRN:?[id number] Exam Date:?03/11/2024 EXAM: PET/CT EYES TO THIGHS, CANCER RESTAGING CLINICAL INFORMATION: Lung cancer, restaging. TECHNICAL INFORMATION: Helical acquisition of data was obtained from the orbits to the upper thighs with reconstruction of 3.75 mm thick images at 3.[address] data was used for attenuation correction. PET scanning was performed through the same anatomic range 56 minutes following administration of 12.01 mCi of 18-FDG delivered intravenously. The patient's glucose at the time of the injection was 123 mg/dL. PET, CT and PET/CT fusion images are interpreted using a computer viewing workstation. PET, CT and PET/CT fusion images were archived and saved in the patient's permanent medical record. COMPARISON: PET CTs from 11/20/2023, 08/28/2023, and 01/30/2023. INTERPRETATION: Head and Neck: There are no abnormal hypermetabolic foci within the head or neck. There is physiologic uptake in the intracranial soft tissues. Chest: Mediastinal blood pool activity with a mean SUV of 2.98. Redemonstrated right upper lobe consolidative opacity with associated volume loss extending to the right perihilar region, with low level radiotracer avidity of SUVmax = 3.50, previously 3.45 (October 2023), 2.97 (August 2023), and 3.16 (January 2023). No new or enlarging lymphadenopathy. No suspicious lung nodules. Stable, benign- appearing airspace opacities. Similar trace right pleural effusion. Left chest wall port catheter. Redemonstrated aberrant left subclavian artery. Abdomen and Pelvis: There are no abnormal hypermetabolic foci within the abdomen or pelvis. Background hepatic parenchymal uptake has a maximum SUV of 3.8. There is physiologic excretion of radiotracer in the urine and bowel. Skeleton, Musculature, and Integument: No abnormal hypermetabolic foci within the skeleton. No christopher osteoblastic or osteolytic disease. CONCLUSION: Stable exam. Treatment-related changes redemonstrated in the right hemithorax. No christopher viable recurrence. No hypermetabolic jorge/distant metastasis identified from the skull base to midthighs. Electronically signed on 03/16/2024 8:17:00 AM by Eduar Lyle M.D.
== END 2024-03-11 15:39 | disposition home or self-care (01) ==
LOC: RAD 15:39
PROVIDERS: PCP Family Medicine; Visit Provider Internal Medicine Hematology & Oncology
DX: C34.01 Malignant neoplasm of right main bronchus (principal)
CPT/HCPCS: 78815; A9552

== ENCOUNTER 2024-04-20 14:30 | Outpatient (RCR) | payer BC, MEDICAID, SELFPAY ==
--- NOTE | 2023-11-18 09:49 | ONC.NURNOTE ---
Received call from [facility] stating pt has an appt for a PET scan on 11/20/23 and they are unable to reach pt by phone. Carbon Blocks Press Operator left message for pt to call [facility] to confirm appt and answer their questions. Also, requested to have pt call [facility] with update.
[2023-11-20] MEDS: ALTEPLASE 2 MG INJ IVF (15:06)
[2023-11-20 16:28] LABS: Basophils Absolute Auto 0.03 K/uL (0.00-0.30); Basophils Percent Auto 0.3 % (0.0-3.0); Eosinophils Absolute Auto 0.07 K/uL (0.00-0.50); Eosinophils Percent Auto 0.7 % (0.0-7.0); Hematocrit 39.4 % (33.0-51.0); Hemoglobin* 13.2 gm/dL (12.0-16.0); Immature Granulocytes Abs Auto 0.02 K/uL (0.00-0.30); Immature Granulocytes Pct Auto 0.2 %; Mean Corpuscular HGB Conc 34 gm/dL (32-36); Mean Corpuscular Hemoglobin 38 pg (26-34); Mean Corpuscular Volume 114 fL (80-100); Monocytes Percent Auto 6.3 % (0.0-11.0); Neutrophils Percent Auto 84.5 % (42.0-72.0); Platelet Count* 160 K/uL (140-440); RDW Coefficient of Variation % 14.1 % (11.5-15.5); Red Blood Count 3.46 m/uL (4.00-5.20)
[2023-11-20 16:30] LABS: Slide Review Reflex Yes
[2023-11-20 16:40] LABS: Albumin* 4.7 g/dL (3.3-5.0); Chloride* 98 mmol/L (96-114); Sodium* 136 mmol/L (135-149)
[2023-11-20 16:41] LABS: Potassium* 3.6 mmol/L (3.6-5.1)
[2023-11-20 16:43] LABS: Alanine Aminotransferase* 45 U/L (4-35); Alkaline Phosphatase* 105 U/L (40-150); Anion Gap 10 mEq/L (7-15); Aspartate Amino Transferase* 111 U/L (12-35); Bilirubin Total* 1.4 mg/dL (0.1-1.5); Blood Urea Nitrogen* 11 mg/dL (7-30); Carbon Dioxide* 28 mmol/L (20-32); Creatinine* 0.7 mg/dL (0.5-1.5); Estimated Glomerular Filt Rate 102 ml/min; Total Protein* 8.7 g/dL (6.0-8.3)
[2023-11-20 16:44] LABS: Calcium* 9.7 mg/dL (8.4-10.6); Glucose* 103 mg/dL (60-115)
[2023-11-20 20:33] LABS: Slide Review Acceptable Review (Acceptable)
[2024-02-24 15:48] LABS: Basophils Absolute Auto 0.03 K/uL (0.00-0.30); Basophils Percent Auto 0.6 % (0.0-3.0); Eosinophils Absolute Auto 0.07 K/uL (0.00-0.50); Eosinophils Percent Auto 1.4 % (0.0-7.0); Hematocrit 42.8 % (33.0-51.0); Immature Granulocytes Abs Auto 0.01 K/uL (0.00-0.30); Immature Granulocytes Pct Auto 0.2 %; Lymphocytes Percent Auto 13.3 % (20-44); Mean Corpuscular HGB Conc 33 gm/dL (32-36); Mean Corpuscular Hemoglobin 37 pg (26-34); Mean Corpuscular Volume 113 fL (80-100); Monocytes Percent Auto 12.1 % (0.0-11.0); Neutrophils Percent Auto 72.4 % (42.0-72.0); Platelet Count* 149 K/uL (140-440); RDW Coefficient of Variation % 12.6 % (11.5-15.5); Red Blood Count 3.79 m/uL (4.00-5.20); White Blood Count* 5.04 K/uL (4.50-11.00)
[2024-02-24 16:05] LABS: Slide Review Reflex No
[2024-02-24 16:19] LABS: Albumin* 4.2 g/dL (3.3-5.0); Chloride* 105 mmol/L (96-114); Sodium* 135 mmol/L (135-149)
[2024-02-24 16:22] LABS: Alanine Aminotransferase* 55 U/L (4-35); Alkaline Phosphatase* 97 U/L (40-150); Anion Gap 12 mEq/L (7-15); Aspartate Amino Transferase* 91 U/L (12-35); Bilirubin Total* 0.6 mg/dL (0.1-1.5); Blood Urea Nitrogen* 10 mg/dL (7-30); Calcium* 9.3 mg/dL (8.4-10.6); Carbon Dioxide* 18 mmol/L (20-32); Creatinine* 0.6 mg/dL (0.5-1.5); Estimated Glomerular Filt Rate 105 ml/min; Glucose* 129 mg/dL (60-115); Total Protein* 8.4 g/dL (6.0-8.3)
--- NOTE | 2024-03-04 11:44 | ONC.NURNOTE ---
Pt rescheduled Pet scan for 03/11/24, internal communications writer left message with follow up appt with Charmaine SANTACRUZ for 03/18/24. Requested pt to call back and confirm appt.
--- NOTE | 2024-03-18 10:15 | ONC.NURNOTE ---
Patient was a no show for her appointment with PA today. LMOM to have patient call back to reschedule.
[2024-04-20] MEDS: SODIUM CHLORIDE 0.9 % (FLUSH) 10 ML SYRINGE IVF (14:52)
[2024-04-20] MEDS: HEPARIN 500 UNIT/5 ML SYRINGE IVF (14:52)
== END 2024-05-18 23:59 | disposition home or self-care (01) ==
LOC: CCIC 14:30
PROVIDERS: PCP Family Medicine; Referring Provider Family Medicine; Visit Provider Internal Medicine Hematology & Oncology
DX: C34.01 Malignant neoplasm of right main bronchus (principal); C79.31 Secondary malignant neoplasm of brain
CPT/HCPCS: 36415; 36591; 80053; 84443; 85025; 96374; 99211; 99214; G0463; J1642; J2997

== ENCOUNTER 2024-09-08 19:10 | Emergency (ER) | payer BC, SELFPAY ==
[2024-09-08 19:12] VITALS: BP 132/76; PULSE 103; RESP 20; TEMP 36.1; O2SAT 95; BMI 28.7
--- OUTSIDE RECORDS SUMMARY | 2024-09-08 19:12 | XMS_ITS | Clinical Summary ---
Author Organization [facility] Address [address] [place] [address] Care Team Providers Care Belt Weaver Name Role Phone Pranay Almonte MD Primary Care Provider [phone] Allergies Active Allergy Reactions Criticality Noted Date [...] Medium 03/19/2019 Sulfa (Sulfonamide Antibiotics) 10/13/2007 Medications epinephrine 0.3 mg in 0.3 ml (EPIPEN) 0.3 mg/0.3 mL injectionIndic ations:Allergi c reaction inject 0.3 mg by intramuscular route once as needed for anaphylaxis 1 PRN 9 Active ibuprofen (ADVIL) 200 mg tabletIndicati ons:headache disorder,pain Take 2 tablets by mouth every 6 hours. Take scheduled for one week then as needed Indications: HEADACHE DISORDER, PAIN 200 tablet 0 1 Active albuterol HFA (PRO-AIR,MATEO FAUSTO,PROVENTIL) 90 mcg/Actuation inhaler Inhale 2 Puffs by mouth every 4 hours if needed. 1 Inhaler 1 1 Active metoprolol tartrate (LOPRESSOR) 25 mg tablet Take 25 mg by mouth 2 times daily. 7 Active atorvastatin (LIPITOR) 40 mg tabletIndicati ons:hyperchole sterolemia Take 80 mg by mouth at bedtime. Indications: high cholesterol 8 Active fluticasone (FLOVENT HFA) 110 mcg/Actuation inhaler Inhale 1 Puff by mouth 2 times daily. Active escitalopram oxalate (LEXAPRO) 10 mg tablet Take 10 mg by mouth once daily. 0 Active LORazepam (ATIVAN) 0.5 mg tab TAKE 1-2 TABLETS BY MOUTH EVERY 4 HOURS NEEDED FOR NAUSEA/VOMITING. 0 Active magnesium oxide (MAG-OX 400) 400 mg tablet take 1 tablet by mouth once daily. if no diarrhea after 3 days, increase to 1 tablet twice daily. 0 Active prochlorperazi ne (COMPAZINE) 10 mg tablet take 1 tablet by mouth ever 4-6 hours as needed for nausea/vomiting. 0 Active Active Problems Problem Noted Date Diagnosed [...] alcohol) at least one drink per night Comments No Sex and Gender Information Value Date Recorded Sex Assigned at Not on file Legal Sex Female 6:16 AM DYE LINE OPERATOR Gender Identity Not on file Sexual Orientation Not on file Obstetrics History Last Filed Vital Signs Vital Sign Reading Time Taken Comments Blood Pressure 113/63 02/09/2020 10:10 AM DYE LINE OPERATOR Pulse 77 02/09/2020 10:10 AM DYE LINE OPERATOR Temperature 36.8 C (98.2 F) 02/09/2020 8:50 AM DYE LINE OPERATOR 98.298.2 Respiratory Rate 16 02/09/2020 10:10 AM DYE LINE OPERATOR Oxygen Saturation 94% 02/09/2020 10:10 AM DYE LINE OPERATOR Inhaled Oxygen Concentration - - Weight 68.5 kg (151 lb) 02/09/2020 7:33 AM DYE LINE OPERATOR Height 153.7 cm (5' 0.5) 02/09/2020 7:33 AM DYE LINE OPERATOR Body Mass Index 29 02/09/2020 7:33 AM DYE LINE OPERATOR Plan of Treatment Health Maintenance Due Date Last Done Comments Tdap 12/10/1978 Depression screening for age 12+ 1979 HIV for age 15-65 12/10/1982 BMI (ht and wt on same day) for age 18+ 12/10/1985 Hepatitis C screening for age 18-79 12/10/1985 Hepatitis B series for 19+ ( 1 of 3 - 19+ 3-dose series) 12/10/1986 Tetanus booster 1987 Colonoscopy through age 75 12/10/2012 Lipids for age 45-75 12/10/2012 Mammogram for age 45-75 12/10/2012 Pap test for age 21-65 10/14/2017 5, 10/14/2014, 07/11/2004 Pneumococcal series for age 50+ (1 of 1 - PCV) 12/10/2017 Zoster (shingles) series for age 50+ (1 of 2) 12/10/2017 COVID-19 vaccine series ( - 2023- season) 2023 Influenza Vaccine (Season Ended) 2024 Procedures Procedure Name Priority Date/Time Associated Diagnosis Comments CARBON BLOCKS PRESS OPERATOR THIN PREP PAP SCREEN IMAGED Routine 10/14/2014 1:45 PM CDT from Last 3 Months or Most Recently Relevant to Health Maintenance Results * CARBON BLOCKS PRESS OPERATOR THIN PREP PAP SCREEN IMAGED (10/14/2014 1:45 PM CDT) CARBON BLOCKS PRESS OPERATOR CYTOLOGY See Anatomic Pathology case 10/19/2014 8:01 PM CDT [facility] Specimen (specimen) (Cervical/Vagina l) Client Collect / Unknown 10/14/2014 1:45 PM CDT 10/14/2014 7:19 PM CDT us Emerita Estevez NP PATHOLOGY/CYTOLOGY Final Res [facility] [address] [place] [address], [place] from Last 3 Months or Most Recently Relevant to Health Maintenance Insurance [facility] [place] Advance Directives * Full Code (Latest Code Status on File) Date Activated Date Inactivated Comments 02/09/2020 7:16 AM 02/10/2020 2:33 AM Question Answer Comments Code Status Discussion: Per Existing Order * Full Code Date Activated Date Inactivated Comments 03/22/2019 11:41 AM 03/22/2019 5:33 PM * Full Code Date Activated Date Inactivated Comments 04/05/2010 11:34 AM 04/05/2010 8:18 PM Care Teams Belt Weaver Relationship Specialty Start Date End Date Pranay Almonte MD [address] [place] [address] PCP - General Family Practice 05/12/17
--- NOTE | 2024-09-08 19:52 | CRLHL7_ITS ---
For Patients: As a result of the Century Cures Act, medical imaging exams and procedure reports are released immediately into your electronic medical record. You may view this report before your referring provider. If you have questions, please contact your health care provider. INDICATION: Dyspnea. TECHNIQUE: Chest radiographs, 2 views. COMPARISON: CT chest abdomen pelvis 05/08/2023. FINDINGS: Lines/devices: Left subclavian Port-A-Cath with tip terminating in the mid SVC. Cardiovascular/Mediastinum: Normal heart size. Unremarkable. Lungs: Patchy masslike right infrahilar opacification. Airways: Trachea remains midline. Pleura: No pleural effusions or pneumothorax. Bones: No acute osseous abnormalities. Upper abdomen: Unremarkable. IMPRESSION: Patchy right hilar opacification may represent a developing pneumonia. A hilar mass is not entirely excluded. Recommend follow-up CT upon resolution of symptoms or completion of treatment to evaluate for underlying neoplasm. Dictated by Monico Colón MD @ 09/08/2024 8:40:31 PM (Electronically Signed)
--- NOTE | 2024-09-08 19:56 | ED.GENADULT ---
HPI - General Adult General Date Seen: 09/08/24 Chief complaint: Headache/Migraine Stated complaint: head pressure, ear pain Time Seen by Provider: 09/08/24 19:41 Source: patient Mode of arrival: ambulatory Limitations: no limitations History of Present Illness HPI narrative: Patient is a 58-year-old female who is a former smoker that has history of small cell lung cancer 5 years ago but has been cancer free since then. Not currently on any treatment for it. She presents the emergency department for fevers, headache, sinus pain, green nasal discharge. States symptoms have been gradually getting worse for the past week. Has had a fever 100.9 at home. He has been taking Tylenol, ibuprofen, Sudafed, NyQuil at night with no relief. States whenever she sneezes her face hurts. Also having some ear pain feels like her ears are for full. States occasionally feels like it is difficult to take a deep breath otherwise does not feel short of breath. Denies any chest pain. States she is blowing her nose so hard sometimes that it will become bloody. Currently not bleeding. Also complaining of a sore throat. Denies abdominal pain, vision changes, weakness, numbness. Does states she also has a headache that is mostly in her sinuses. Related Data Home Medications ?Medication ?Instructions ?Recorded ?Confirmed epinephrine 0.1 mg/0.1 mL 0.3 ml IM ONCE PRN 09/26/21 09/08/24 injection, auto-injector lorazepam 0.5 mg tablet (Ativan) 0.5 mg PO Q4H PRN 08/22/22 09/08/24 diazepam 5 mg tablet 5 mg PO ONCE PRN Prior to MRI 02/05/23 09/08/24 ibuprofen 400 mg tablet 400 - 600 mg PO Q6H PRN 01/06/24 09/08/24 Previous Rx's ?Medication ?Instructions ?Recorded atorvastatin 80 mg tablet 80 mg PO QPM #90 tabs 01/06/24 escitalopram oxalate 10 mg tablet 10 mg PO QDAY #90 tabs 01/06/24 metoprolol succinate 25 mg 25 mg PO DAILY #90 tabs 01/06/24 tablet,extended release 24 hr Allergies Allergy/AdvReac Type Severity Reaction Status Date / Time hydromorphone Allergy Severe Blurry Verified 04/20/24 14:26 Vision [place] Allergy Intermediate lip Verified 04/20/24 14:26 swelling Sulfa (Sulfonamide Allergy Intermediate Swelling Verified 04/20/24 14:26 Antibiotics) amoxicillin Allergy Mild Rash Verified 04/20/24 14:26 clavulanic acid Allergy Mild Rash Verified 04/20/24 14:26 hydrochlorothiazide Allergy Mild Cough Verified 04/20/24 14:26 Review of Systems Status of ROS: Reports: 10 or more systems reviewed and unremarkable except as noted in History and below PFSH PFSH Medical History History of tobacco use ?Z87.891 - Personal history of nicotine dependence (ICD-10) 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 - Arthralgia of temporomandibular joint, unspecified side (ICD-10) Hypertension ?I10 - Essential (primary) hypertension (ICD-10) Hyperlipidemia ?E78.5 - Hyperlipidemia, unspecified (ICD-10) Chronic elbow pain ?M25.529 - Pain in unspecified elbow (ICD-10) ?G89.29 - Other chronic pain (ICD-10) History of tobacco use ?Z87.891 - Personal history of nicotine dependence (ICD-10) History of eczema ?Z87.2 - Personal history of diseases of the skin and subcutaneous tissue (ICD-10) Surgical History History of removal of Port-a-Cath (02/04/18) ?Z98.890 - Other specified postprocedural states (ICD-10) Status post nasal surgery ?Z98.890 - Other specified postprocedural states (ICD-10) History of removal of Port-a-Cath (02/04/18) ?Z98.890 - Other specified postprocedural states (ICD-10) Family History Mother Osteoarthritis Aunt Osteoarthritis Maternal Grandmother High blood pressure Social History Narrative: alcohol use-15 drinks per week, tobacco use-trying to quit 15 packs per year What is your current living situation?: I presently have a place to live Problems where you live: declined to answer In the past 12 months, utilities in danger of being shut off: no In past 12 months, lack of transportation kept you from medical appts, meetings, work, or getting things needed for daily living: no In the past 12 mos, have been you worried that your food would run out before you had money to buy more?: never true In the past 12 mos, the food you bought just didn't last and you didn't have money to buy more?: never true Smoking Status: Former smoker Do you use any of these nicotine containing products: None How often do you have a drink containing alcohol: 2-3 times a week How many standard drinks containing alcohol do you have on a typical day: 3 or 4 How often do you have six or more drinks on one occasion: Monthly AUDIT-C Alcohol total score: 6 Non-prescribed substance use: marijuana (any form) How often does anyone, including family, friends and others, physically hurt you: never How often does anyone, including family, friends and others, insult or talk down to you: never How often does anyone, including family, friends and others, threaten you with harm: never How often does anyone, including family, friends and others, scream or curse at you: never Exam Narrative: Exam Narrative: Const: Well-nourished, Well-developed, in mild distress Eyes: PERRL, no conjunctival injection, and symmetrical lids HENT: Atraumatic external nose and ears. Moist mucous membranes. Erythematous posterior oropharynx. Uvula midline. No tonsillar exudate or swelling. Tympanic membranes normal bilaterally. Tender frontal sinus. Mildly tender maxillary sinus. Neck: Symmetric, trachea midline, No thyromegaly. CVS: RRR, No murmurs or gallops. Peripheral pulses 2+ and equal in all extremities RESP: Unlabored respiratory effort. Clear to auscultation bilaterally. GI: Nontender/Nondistended, No rebound or guarding. MSK:Extremities w/o deformity, Normal Active ROM Skin: Warm, Dry. No rashes or lesions. Neuro: Normal Muscle tone, No focal neurological deficits. Psych: Awake, Alert, & Oriented x3. Appropriate mood and affect. Const: Vital Signs, click to edit/add: Vital Signs - 24 hr 09/08/24 19:12 09/08/24 20:25 Temperature 96.9 F L Pulse Rate [Pulse Oximeter] 103 H 90 Respiratory Rate 20 24 Blood Pressure [Ri ght Upper Arm] 132/76 118/77 Pulse Oximetry 95 94 Oxygen Delivery Me thod Room Air Room Air Course Vital Signs Vital signs: Initial Vital Signs Temperature 96.9 F L 09/08/24 19:12 Temperature Source Temporal Artery Scan 09/08/24 19:12 Pulse Rate 103 H 09/08/24 19:12 Pulse Rhythm Regular 09/08/24 19:12 Respiratory Rate 20 09/08/24 19:12 Blood Pressure 132/76 09/08/24 19:12 Blood Pressure Mean 94 09/08/24 19:12 Blood Pressure Position Sitting 09/08/24 19:12 Pulse Oximetry 95 09/08/24 19:12 Oxygen Delivery Method Room Air 09/08/24 19:12 Vital Signs Temperature 96.9 F L 09/08/24 19:12 Pulse Rate 103 H 09/08/24 19:12 Respiratory Rate 20 09/08/24 19:12 Blood Pressure 132/76 09/08/24 19:12 Pulse Oximetry 95 09/08/24 19:12 Oxygen Delivery Method Room Air 09/08/24 19:12 Temperature 96.9 F L 09/08/24 19:12 Pulse Rate 90 09/08/24 20:25 Respiratory Rate 24 09/08/24 20:25 Blood Pressure 118/77 09/08/24 20:25 Pulse Oximetry 94 09/08/24 20:25 Oxygen Delivery Method Room Air 09/08/24 20:25 Medical Decision Making [facility] Narrative Medical decision making narrative: Patient is a 58-year-old female presenting for what sounds like sinusitis. This also some concern for pneumonia. She has some mild occasional shortness of breath lower concern for PE is relatively low. With the shortness of breath I will do an EKG and troponin. With her history of cancer will do a CBC and BMP. Viral swabs along with a strep test were also ordered. Fever is improved at this time. Swabs were all negative. Chest x-ray shows possible signs of pneumonia. I will treat her as a pneumonia. Her heart rate did improve here without intervention. CBC shows no concerning findings. BMP does show potassium of 3.0. I will replenish this. EKG shows no concerning findings. Troponin shows no concerning findings. Do not believe needs to be repleted considering length of symptoms. She will be discharged with antibiotics for pneumonia. She states she has repeat imaging scheduled for September 21 already for her cancer screening Lab Data Labs: Lab Results 09/08/24 09/08/24 Range/Units 19:25 20:13 WBC 9.55 (4.50-11.00) K/uL RBC 3.43 L (4.00-5.20) m/uL Hgb 13.3 (12.0-16.0) gm/dL Hct 38.7 (33.0-51.0) % MCV 113 H (80-100) fL MCH 39 H (26-34) pg MCHC 34 (32-36) gm/dL RDW Coeff of Tamika 13.5 (11.5-15.5) % Plt Count 189 (140-440) K/uL Neut % (Auto) 86.2 H (42.0-72.0) % Lymph % (Auto) 5.0 L (20-44) % [place] % (Auto) 7.3 (0.0-11.0) % Eos % (Auto) 0.9 (0.0-7.0) % Baso % (Auto) 0.3 (0.0-3.0) % Neut # (Auto) 8.20 H (1.7-7.0) K/uL Lymph # (Auto) 0.50 L (0.90-2.90) K/uL [place] # (Auto) 0.70 (0.00-0.90) K/UL Eos # (Auto) 0.09 (0.00-0.50) K/uL Baso # (Auto) 0.03 (0.00-0.30) K/uL Abs Immat Gran (auto) 0.03 (0.00-0.30) K/uL Imm/Tot Granulo (auto) 0.3 % Sodium 134 L (135-149) mmol/L Potassium 3.0 L (3.6-5.1) mmol/L Chloride 94 L (96-114) mmol/L Carbon Dioxide 26 (20-32) mmol/L Anion Gap 14 (7-15) mEq/L BUN 14 (7-30) mg/dL Creatinine 0.7 (0.5-1.5) mg/dL Estimated Creat Clear 67.72 Estimated GFR 101 ml/min Glucose 127 H (60-115) mg/dL Calcium 9.4 (8.4-10.6) mg/dL SARS-CoV-2 (PCR) Negative SARS-CoV-2 (Negative) Influenza Type A (PCR) Negative PCR FLU A (Negative) Influenza Type B (PCR) Negative PCR FLU B (Negative) RSV (PCR) Negative PCR RSV (Negative) Group A Strep DNA NOT DETECTED (Not Detectd) Imaging Data Chest x-ray: Attestation: I have reviewed the pertinent imaging results. Radiologist's impression: Patchy right hilar opacification may represent a developing pneumonia. A hilar mass is not entirely excluded. Recommend follow-up CT upon resolution of symptoms or completion of treatment to evaluate for underlying neoplasm. Dictated by Monico Colón MD @ 09/08/2024 8:40:31 PM ECG Data Attestation: I personally reviewed and interpreted this ECG as follows: Prior ECG tracings: not available for review Interpretation: Normal sinus rhythm with a rate of 91 beats per minute, normal HI interval, does appear to have a prolonged QT but difficult to say with all of the artifact. No ST or T-wave abnormalities. Discharge Plan Discharge Clinical Impression: Hypokalemia Pneumonia Qualifiers: Pneumonia type: due to unspecified organism Laterality: right Lung location: unspecified part of lung Qualified Code(s): J18.9 - Pneumonia, unspecified organism Patient Disposition: Home, Self-Care Condition: Stable Instructions: Community Acquired Pneumonia (ED) Additional Instructions: Augmentin and azithromycin were prescribed be instymeds. Take these antibiotics as directed. Return to emergency department for new or worsening symptoms. Is recommended to have repeat imaging performed when symptoms resolve. Prescriptions: No Action atorvastatin 80 mg tablet 80 mg PO QPM Qty: 90 3RF escitalopram oxalate 10 mg tablet 10 mg PO QDAY Qty: 90 3RF metoprolol succinate 25 mg tablet extended release 24 hr 25 mg PO DAILY Qty: 90 3RF lorazepam [Ativan] 0.5 mg tablet 0.5 mg PO Q4H PRN Patient Comments: From 2019 with previous chemo epinephrine 0.1 mg/0.1 mL auto-injector 0.3 ml IM ONCE PRN diazepam 5 mg tablet 5 mg PO ONCE PRN (Reason: Prior to MRI) ibuprofen 400 mg tablet 400 - 600 mg PO Q6H PRN Follow Up/Referrals: Pranay Almonte MD [Primary Care Provider, Family Practice] Stand Alone Forms: OnePage[employer] Info Instructions
[2024-09-08 20:11] LABS: Strep A DNA Probe* NOT DETECTED (Not Detectd)
[2024-09-08 20:24] LABS: PCR FLU A Negative PCR FLU A (Negative); PCR FLU B Negative PCR FLU B (Negative); PCR RSV Negative PCR RSV (Negative); SARS PCR* Negative SARS-CoV-2 (Negative)
[2024-09-08 20:25] VITALS: BP 118/77; PULSE 90; RESP 24; O2SAT 94
[2024-09-08 20:27] LABS: Basophils Absolute Auto 0.03 K/uL (0.00-0.30); Basophils Percent Auto 0.3 % (0.0-3.0); Eosinophils Absolute Auto 0.09 K/uL (0.00-0.50); Eosinophils Percent Auto 0.9 % (0.0-7.0); Hematocrit 38.7 % (33.0-51.0); Hemoglobin* 13.3 gm/dL (12.0-16.0); Immature Granulocytes Abs Auto 0.03 K/uL (0.00-0.30); Immature Granulocytes Pct Auto 0.3 %; Mean Corpuscular HGB Conc 34 gm/dL (32-36); Mean Corpuscular Hemoglobin 39 pg (26-34); Mean Corpuscular Volume 113 fL (80-100); Monocytes Percent Auto 7.3 % (0.0-11.0); Neutrophils Percent Auto 86.2 % (42.0-72.0); Platelet Count* 189 K/uL (140-440); RDW Coefficient of Variation % 13.5 % (11.5-15.5); Red Blood Count 3.43 m/uL (4.00-5.20); White Blood Count* 9.55 K/uL (4.50-11.00)
[2024-09-08 20:43] LABS: Chloride* 94 mmol/L (96-114); Sodium* 134 mmol/L (135-149)
[2024-09-08 20:46] LABS: Anion Gap 14 mEq/L (7-15); Blood Urea Nitrogen* 14 mg/dL (7-30); Calcium* 9.4 mg/dL (8.4-10.6); Carbon Dioxide* 26 mmol/L (20-32); Creatinine* 0.7 mg/dL (0.5-1.5); Est. Creatinine Clearance* 67.72; Estimated Glomerular Filt Rate 101 ml/min; Glucose* 127 mg/dL (60-115)
[2024-09-08 20:47] LABS: Slide Review Reflex No
[2024-09-08] MEDS: POTASSIUM CHLORIDE 10 MEQ CAPSULE ER 40 MEQ PO (21:11)
== END 2024-09-08 21:24 | disposition home or self-care (01) ==
PROVIDERS: Emergency Provider Student in an Organized Health Care Education/Training Program; PCP Family Medicine
DX: J18.9 Pneumonia, unspecified organism (principal); E87.6 Hypokalemia
CPT/HCPCS: 36415; 71046; 80048; 84484; 85025; 87631; 87651; 93005; 99284; A9270

== ENCOUNTER 2024-10-05 14:49 | Outpatient (CLI) | payer BC, SELFPAY ==
--- NOTE | 2024-10-05 15:00 | CRLHL7_ITS ---
For Patients: As a result of the Century Cures Act, medical imaging exams and procedure reports are released immediately into your electronic medical record. You may view this report before your referring provider. If you have questions, please contact your health care provider. Indication: SMALL CELL LUNG CANCER F/U Technique: CT Chest/Abd/Pelvis w/ 75cc ISOVUE 370 Please note that all CT scans at this facility use dose modulation, iterative reconstruction, and/or weight-based dosing when appropriate to reduce radiation dose to as low as reasonably achievable. Comparison: 05/08/2023 CT, 11/20/2023 CT PET, 03/11/2024 CT PET Findings: In the chest, the visualized thyroid is unremarkable. Incidental retroesophageal course of the right subclavian artery. No pericardial effusion. Resolution of the previously noted right pleural effusion. Similar subcarinal and right hilar soft tissue densities when compared to the prior exams. Left-sided Port-A-Cath. Scarring in the peripheral lungs bilaterally again noted. Stable chronic densities within the anterior right middle lobe and right upper lobe along with the right posteromedial lower lobe. Chronic deformity of the T5 vertebral body. In the abdomen, the there is mild hepatic steatosis. Calcified stones in the gallbladder are again noted. No biliary obstruction. Spleen is similar. No adrenal nodule. Kidneys are within normal limits. Atherosclerotic changes. No aneurysm. Pancreas is normal. A few scattered subcentimeter retroperitoneal lymph nodes are present. In the pelvis, the bladder is normal. Normal uterus. Similar ovaries. No bowel obstruction or free air. No free fluid. Normal appendix. No adenopathy. No lumbar spine fracture. Impression: Stable exam. No significant change compared to prior studies. Stable posttreatment changes to the right perihilar lung. No evidence of metastatic disease. Please note that all CT scans at this facility use dose modulation, iterative reconstruction, and/or weight-based dosing when appropriate to reduce radiation dose to as low as reasonably achievable. Dictated by Cristóbal Burnette MD @ 10/06/2024 12:34:27 PM (Electronically Signed)
--- NOTE | 2024-10-05 15:30 | CRLHL7_ITS ---
For Patients: As a result of the Century Cures Act, medical imaging exams and procedure reports are released immediately into your electronic medical record. You may view this report before your referring provider. If you have questions, please contact your health care provider. INDICATION: Lung cancer. COMPARISON: 02/24/2024. TECHNIQUE: Multiplanar T1, T2, FLAIR and diffusion-weighted imaging.. Post gadolinium T1 weighted sequences. Gadolinium 15 cc IV. FINDINGS: Compared to the most recent exam, stable size and appearance of the peripherally enhancing lesion of the left cerebellum measuring approximately 13 x 14 mm (series 1001, image 121). Surrounding vasogenic edema is unchanged. Stable localized mass effect. No new abnormal enhancement or enhancing lesions elsewhere. Mild generalized volume loss. Few scattered foci of T2 signal within the white matter of both cerebral hemispheres consistent with chronic deep white matter small vessel ischemic changes. No intracranial hemorrhage. No abnormal ventricular dilatation. Intracranial vascular flow voids are preserved. No mass effect or midline shift. No restricted diffusion to suggest acute ischemia. No susceptibility artifact of remote hemorrhage. Bilateral orbits are unremarkable. Normal appearing sella. Mild mucosal thickening within the ethmoid air cells and maxillary sinuses. Mastoid air cells are unremarkable. Stable heterogeneous signal intensity and restricted diffusion involving the marrow of the calvarium again may represent bone marrow reconversion. No focal or aggressive osseous lesions. IMPRESSION: 1. 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 Stable surrounding vasogenic edema. 2. No new abnormal enhancement or enhancing lesions elsewhere 3. No acute intracranial abnormality 4. Mild generalized cerebral volume loss. Chronic deep white matter small vessel ischemic changes. 5. No acute or chronic intracranial hemorrhage Dictated by Joao Powell MD @ 10/06/2024 12:32:25 PM (Electronically Signed)
== END 2024-10-05 14:50 | disposition home or self-care (01) ==
LOC: CT 14:50
PROVIDERS: PCP Family Medicine; Visit Provider Internal Medicine Hematology & Oncology
DX: C34.90 Malignant neoplasm of unspecified part of unspecified bronchus or lung (principal); C79.31 Secondary malignant neoplasm of brain; I67.82 Cerebral ischemia
CPT/HCPCS: 70553; 71260; 74177; A9575; Q9967

== ENCOUNTER 2024-12-22 15:30 | Outpatient (RCR) | payer BC, SELFPAY ==
--- NOTE | 2024-06-11 10:51 | ONC.NURNOTE ---
Patient missed her appointment for her port flush, staff writer left message asking her to call office to reschedule.
[2024-07-13 11:52] VITALS: BP 131/88; PULSE 79; RESP 20; TEMP 35.6; O2SAT 89
[2024-07-13] MEDS: HEPARIN 500 UNIT/5 ML SYRINGE IVF (11:55)
[2024-07-13] MEDS: SODIUM CHLORIDE 0.9 % (FLUSH) 10 ML SYRINGE IVF (11:55)
--- NOTE | 2024-09-06 15:25 | ONC.NURNOTE ---
Called pt today to update her on the cancellation of her PET scan need to schedule a CT chest/abd/pelvis. Upon answering, pt sounded very ill. She could barely talk, states that she has had fevers and has been coughing nonstop. She sounds incredibly congested. RN advised pt to go to the ER to be evaluated, she plans to do so when her gets home from work. Jackie also shared that her father is actively dying and that she received a call from the nurse that he will be passing soon. She is distressed about not being with him at this time. Jackie states she has felt ill for about 5 days now. RN provided support and encouragement. Contacted Radiology and asked that they call Jackie to set up the CT scan for the week of 10/04/24 but to wait a few weeks to call her. Staff verbalized understanding.
--- NOTE | 2024-09-09 15:20 | ONC.NURNOTE ---
Called pt today to check in. Jackie states that she did go to the ER after we spoke on Friday. RN noted documentation in the EMR. Pt started her antibiotics yesterday. Jackie also shared that her father when she was here in the ER. His services are Friday. Supportive listening provided.
[2024-12-22] MEDS: SODIUM CHLORIDE 0.9 % (FLUSH) 10 ML SYRINGE IVF (15:50)
[2024-12-22] MEDS: HEPARIN 500 UNIT/5 ML SYRINGE IVF (15:50)
== END 2025-01-09 23:59 | disposition home or self-care (01) ==
LOC: CCIC 15:30
PROVIDERS: Surgery; PCP Family Medicine; Referring Provider Family Medicine; Visit Provider Internal Medicine Hematology & Oncology
PROC: (CPT 36590; principal; 2024-10-25 07:30)
DX: C34.01 Malignant neoplasm of right main bronchus (principal)
CPT/HCPCS: 99211; 99214; G0463; J1642

== ENCOUNTER 2025-01-10 09:29 | Day surgery (SDC) | payer BC, SELFPAY ==
[2025-01-10 10:24] VITALS: BP 117/81; PULSE 83; RESP 16; TEMP 36.6; O2SAT 94
[2025-01-10 10:26] VITALS: BMI 27.4
[2025-01-10] MEDS: LACTATED RINGERS 1000 ML 1,000 ML 100 ML IV (10:30)
[2025-01-10] MEDS: SODIUM CHLORIDE 0.9 % (FLUSH) 10 ML SYRINGE IVF (10:30)
[2025-01-10] MEDS: LIDOCAINE 1 % PF 30 ML INJECTION (11:55)
[2025-01-10] MEDS: BUPIVACAINE 0.5% 30 ML INJECTION (11:55)
--- NOTE | 2025-01-10 11:58 | SUR.OPER ---
PATIENT QUESTIONS ANSWERED SATISFACTORILY PREOPERATIVELY. PATIENT BROUGHT TO OR #4 PER CART. Patient positioned supine on OR #4 bed. The perioperative team supported arms bilaterally on arm boards. Final approval of positioning by surgeon.
--- NOTE | 2025-01-10 12:13 | W.PM.H&PU ---
History & Physical Update History & Physical Update H&P Reviewed and patient assessed: No changes noted H&P Updates: Jackie had a left subclavian port placed by Dr. Woody in 2019. She had previously undergone port placement and replacement. The port excision which was then in clinic cause a lot of anxiety for her and she prefers to do it with sedation. The port has been working for her though she has noticed more bruising around it. Not on any blood thinners.
[2025-01-10 12:15] VITALS: BP 117/77; PULSE 82; RESP 16; TEMP 36.4; O2SAT 97
--- NOTE | 2025-01-10 12:15 | PM.GSPRC ---
Operative Note Date of procedure: 01/10/25 Pre-op diagnosis: Left subclavian port in place Post-op diagnosis: Same Type of Procedure: Removal, left subclavian port Indications: Patient is a 59-year-old female who previously had a left subclavian port placed in 2019 for treatment of lung cancer. She has completed treatment in the port is no longer needed. She is here today for removal. She has requested removal in the OR because of discomfort with prior port removal. Procedure Description: After discussing the risks and benefits of the procedure, the patient signed informed consent.? The operative site was marked and the patient was brought to the operating room and placed on the operating table in supine position.? Care was taken to pad the patient's pressure points.?? The patient was then given sedation by anesthesia.?? The operative site was then prepped and draped in the usual sterile fashion.? A time-out was then performed. A mix of 1% lidocaine and Marcaine was injected into the skin and subcutaneous tissue overlying the port. The prior incision was incised with a scalpel and dissection was taken down sharply until the port was encountered. The capsule was then incised and the hub was identified. The catheter was then delivered from its tract without difficulty. Pressure was placed on the chest wall just under the clavicle. No bleeding was noted from the tract. The capsule of the port was dissected away from the port sharply. A single suture was identified holding the port in place. This was removed. The port was then delivered through the incision. Hemostasis appeared excellent. The wound was closed in layers with 3-0 Vicryl dermal and 4-0 Monocryl running subcuticular suture. Glue and a pressure dressing were applied. The patient tolerated the procedure well. Port was discarded. The patient was then woken and transported to the recovery area in stable condition. ? Findings: Left subclavian port Anesthesia: MAC Surgeon: Emerita Esposito MD Estimated blood loss (mL): 1 Condition: stable Disposition: same day
--- NOTE | 2025-01-10 12:17 | P.ANES_ITS ---
Anesthesia Charges Start Date/Time Anesthesia Start Date: 01/10/25 Anesthesia Start Time: 11:43 Stop Date/Time Anesthesia Stop Date: 01/10/25 Anesthesia Stop Time: 12:16 Coding CPT Codes CPT Codes: ANESTH VASCULAR ACCESS - 84956 ([id number]) P2 - PATIENT W/MILD SYST DISEASE, QK - PRESS SERVICE READER 2-4 CNCRNT ANES PROC, QX - SMALL ELECTRIC ENGINE TECHNICIAN SVC W/ MD MED DIRECTION
--- NOTE | 2025-01-10 12:17 | W.ANESCHARGE ---
Anesthesia Charges Start Date/Time Anesthesia Start Date: 01/10/25 Anesthesia Start Time: 11:43 Stop Date/Time Anesthesia Stop Date: 01/10/25 Anesthesia Stop Time: 12:16 Coding CPT Codes CPT Codes: ANESTH VASCULAR ACCESS - 55375 ([id number]) P2 - PATIENT W/MILD SYST DISEASE, QK - DCS ENGINEER 2-4 CNCRNT ANES PROC, QX - TALEND ETL DEVELOPER SVC W/ MD MED DIRECTION
[2025-01-10 12:30] VITALS: BP 116/70; PULSE 79; RESP 16; O2SAT 97
--- NOTE | 2025-01-10 12:31 | P.ANES_ITS ---
Anesthesia Charges Start Date/Time Anesthesia Start Date: 01/10/25 Anesthesia Start Time: 11:43 Stop Date/Time Anesthesia Stop Date: 01/10/25 Anesthesia Stop Time: 12:16 Coding CPT Codes CPT Codes: ANESTH VASCULAR ACCESS - 70182 ([id number]) QK - COFFEE BREAK ATTENDANT 2-4 CNCRNT ANES PROC, QX - APPLICATION SUPPORT ENGINEER SVC W/ MD MED DIRECTION, P2 - PATIENT W/MILD SYST DISEASE
--- NOTE | 2025-01-10 12:31 | W.ANESCHARGE ---
Anesthesia Charges Start Date/Time Anesthesia Start Date: 01/10/25 Anesthesia Start Time: 11:43 Stop Date/Time Anesthesia Stop Date: 01/10/25 Anesthesia Stop Time: 12:16 Coding CPT Codes CPT Codes: ANESTH VASCULAR ACCESS - 03447 ([id number]) QK - STOCK SPECULATOR 2-4 CNCRNT ANES PROC, QX - WIRE WINDER SVC W/ MD MED DIRECTION, P2 - PATIENT W/MILD SYST DISEASE
[2025-01-10 12:45] VITALS: BP 116/76; PULSE 77; RESP 14; O2SAT 98
[2025-01-10] MEDS: ACETAMINOPHEN 325 MG TABLET PO (12:45)
[2025-01-10 13:00] VITALS: BP 120/88; PULSE 84; RESP 16; TEMP 36.6; O2SAT 93
== END 2025-01-10 13:32 | disposition home or self-care (01) ==
PROVIDERS: PCP Family Medicine; Visit Provider Surgery
PROC: (CPT 36590; principal; 2025-01-10 11:45)
DX: Z45.2 Encounter for adjustment and management of vascular access device (principal); Z85.118 Personal history of other malignant neoplasm of bronchus and lung
CPT/HCPCS: 36590; 00400; 00532; A9270; J0665; J2003; J2405; J2704; J3010; J3490; J7120